=== PATIENT | male | born 1955 | race Caucasian/White ===

== ENCOUNTER → 2018-01-21 17:07 | Outpatient (CLI) | payer SELFPAY ==
--- NOTE | 2018-01-21 17:24 | XR_ITS ---
XR chest 2V HISTORY: ITS.REASON: POSSIBLE ASPIRATION OF DENTAL IMPLANT SCREW ORDERING PHYSICIAN: Referral Provider, PATIENT AGE: 62 years COMPARISON: None FINDINGS: The cardiomediastinal silhouette and pulmonary vascularity are within normal limits. There are minimal atelectatic or fibrotic changes in the left lung base. No radio opaque foreign bodies evident within the chest. There is a small rounded metallic density in the mid upper abdomen centrally measuring 5 mm with a central lucency and may be related to a swallowed dental implant. This is seen on the most inferior edge of the film on the frontal view. Probably within the stomach. IMPRESSION: Metallic foreign body in the mid upper abdomen centrally likely in the stomach and may represent a swallowed dental implant.
== END ==
DX: T18.8XXA Foreign body in other parts of alimentary tract, initial encounter (principal)
CPT/HCPCS: 71046

== ENCOUNTER 2025-04-28 19:52 | Emergency (ER) | payer MEDICARE, OTHER, SELFPAY ==
--- OUTSIDE RECORDS SUMMARY | 2025-03-23 11:30 | XMS_ITS | Encounter Summary ---
Author Organization [facility] Address [address] [place] [address] Care Team Providers Care Contingents Supervisor Name Role Phone Madi Gu Primary Care Provider [phone] Reason for Visit * Reason Comments Medicare Wellness-subsequent Saturday had abdominal pain started on rt side and radiated to lower back. But since then he has been better. Not had pain since.Pt is fasting today if needed for labs. Encounter Details Date Type Department Care Team (Late st Contact Info) Description 03/23/2025 11:30 AM EDT Office Visit [facility] [address] [place] [address] Madi Gu PA [address] [place] [address] Medicare annual wellness visit, subsequent (Primary Dx); Mixed hyperlipidemia; Primary hypertension; Vitamin D insufficiency; Screening for malignant neoplasm of prostate; Type 2 diabetes mellitus without complication, without long-term current use of insulin; Chronic pain of right knee; Right flank pain; RLQ abdominal pain Social History Tobacco Use Types Packs/Day Years Used Date Smoking Tobacco: Never Passive Smoke Exposure: Never Smokeless Tobacco: Never Tobacco Cessation:Counseling Given: Not Answered Alcohol Use Standard Drinks/Week Comments Not Currently 0 (1 standard drink = 0.6 oz pur e alcohol) Occasional glass of wine PHQ-2 Answer Date Recorded Retired PHQ-9: Brief Depression Severity Measure Score 0 03/28/2022 PHQ-2 Answer Date Recorded Patient Health Questionnaire-2 Score 0 03/23/2025 Sex and Gender Information Value Date Recorded Sex Assigned at Male 11/25/2024 10:38 AM EDT Legal Sex Male 1:09 PM EDT Gender Identity Not on file Sexual Orientation Straight 11/25/2024 10 :38 AM EDT Occupation Industry Job Start Date Job End Date Contractor Not on file Not on file Not on file documented as of this encounter Last Filed Vital Signs Vital Sign Reading Time Taken Comments Blood Pressure 118/68 03/23/2025 11:20 AM EDT Pulse 56 03/23/2025 11:20 AM EDT Temperature 36.4 C (97.5 F) 03/23/2025 11:20 AM EDT Respiratory Rate - - Oxygen Saturation 94% 03/23/2025 11:20 AM EDT Inhaled Oxygen Concentration - - Weight 112 kg (248 lb) 03/23/2025 11:20 AM EDT Height 185.4 cm (6' 1 ) 03/23/2025 11:20 AM EDT Body Mass Index 32.72 03/23/2025 11:20 AM EDT documented in this encounter Functional Status documented as of this encounter Progress Notes * Madi Gu PA - 03/23/2025 11:30 AM EDT Subjective The ABCs of the Annual Wellness Visit Medicare Wellness Visit Rayray Zepeda Jr is a 69 y.o. patient who presents for a Medicare Wellness Visit. The following portions of the patient's history were reviewed and updated as appropriate: allergies, current medications, past family history, past medical history, past social history, past surgical history, and problem list. Compared to one year ago, the patient's physical health is the same. Compared to one year ago, the patient's mental health is better. Recent Hospitalizations: He was not admitted to the hospital during the last year. Current Medical Providers: Patient Care Team: Madi uG PA as PCP - General (Physician Credit Card Specialist) Outpatient Medications Prior to Visit Medication Sig Dispense Refill aspirin 81 MG chewable tablet Chew 1 tablet Daily. cetirizine (ZyrTEC) 10 MG chewable tablet Chew Daily. ezetimibe (ZETIA) 10 MG tablet TAKE 1 TABLET BY MOUTH DAILY 90 tablet 1 ketorolac (ACULAR) 0.5 % ophthalmic solution loratadine (Claritin) 10 MG tablet Take 1 tablet by mouth Daily. olmesartan (Benicar) 40 MG tablet Take 1 tablet by mouth Daily. 90 tablet 1 Tirzepatide 10 MG/0.5ML solution auto-injector Inject 10 mg under the skin into the appropriate area as directed 1 (One) Time Per Week. 2 mL 3 Cholecalciferol (Vitamin D3) 50 MCG (2000 UT) capsule meloxicam (MOBIC) 15 MG tablet Take 1 tablet by mouth Daily As Needed for Moderate Pain. meloxicam (MOBIC) 7.5 MG tablet Take 1 tablet by mouth Daily. moxifloxacin (VIGAMOX) 0.5 % ophthalmic solution prednisoLONE acetate (PRED FORTE) 1 % ophthalmic suspension No facility-administered medications prior to visit. No opioid medication identified on active medication list. I have reviewed chart for other potential high risk medication/s and harmful drug interactions in the elderly. Aspirin is on active medication list. Aspirin use is indicated based on review of current medical condition/s. Pros and cons of this therapy have been discussed today. Benefits of this medication outweigh potential harm. Patient has been encouraged to continue taking this medication. . Patient Active Problem List Diagnosis Kidney stones Squamous cell carcinoma of skin Seasonal allergies Hypogonadism male Hypertension Mixed hyperlipidemia Erectile dysfunction Class 1 obesity due to excess calories with serious comorbidity and body mass index (BMI) of 34.0 to 34.9 in adult Type 2 diabetes mellitus without complication, without long-term current use of insulin History of colon polyps Advance Care Planning Advance Directive is on file. ACP discussion was held with the patient duringthis visit. Patient has an advance directive in EMR which is still valid. Objective Vitals: 03/23/25 1120 BP: 118/68 Pulse: 56 Temp: 97.5 ??F (36.4 ??C) SpO2: 94% Weight: 112 kg (248 lb) Height: 185.4 cm (73 ) PainSc: 0-No pain Estimated body mass index is 32.72 kg/m?? as calculated from the following: Height as of this encounter: 185.4 cm (73 ). Weight as of this encounter: 112 kg (248 lb). BMI is >= 30 and <35. (Class 1 Obesity). The following options were offered after discussion;: exercise counseling/recommendations and nutrition counseling/recommendations Does the patient have evidence of cognitive impairment? No Health Risk Assessment Smoking Status: Social History Tobacco Use Smoking Status Never Passive exposure: Never Smokeless Tobacco Never Alcohol Consumption: Social History Substance and Sexual Activity Alcohol Use Not Currently Comment: Occasional glass of wine Fall Risk Screen STEADI Fall Risk Assessment was completed, and patient is at LOW risk for falls.Assessment completed on:03/23/2025 Depression Screening Little interest or pleasure in doing things? Not at all Feeling down, depressed, or hopeless? Not at all PHQ-2 Total Score 0 Health Habits and Functional and Cognitive Screenin03/15/2025 12:10 PM Functional & Cognitive Status Do you have difficulty preparing food and eating? No Do you have difficulty bathing yourself, getting dressed or grooming yourself? No Do you have difficulty using the toilet? No Do you have difficulty moving around from place to place? No Do you have trouble with steps or getting out of a bed or a chair? No Current Diet Limited Junk Food Dental Exam Up to date Eye Exam Up to date Exercise (times per week) 3 times per week Current Exercises Include Walking;Weightlifting;Yard Work Do you need help using the phone? No Are you deaf or do you have serious difficulty hearing? No Do you need help to go to places out of walking distance? No Do you need help shopping? No Do you need help preparing meals? No Do you need help with housework? No Do you need help with laundry? No Do you need help taking your medications? No Do you need help managing money? No Do you ever drive or ride in a car without wearing a seat belt? No Have you felt unusual fatigue (could be tiredness), stress, anger or loneliness in the last month? No Who do you live with? Spouse If you need help, do you have trouble finding someone available to you? No Have you been bothered in the last four weeks by sexual problems? No Do you have difficulty concentrating, remembering or making decisions? No Age-appropriate Screening Schedule: Refer to the list below for future screening recommendations based on patient's age, sex and/or medical conditions. Orders for these recommended tests are listed in the plan section. The patient has been provided with a written plan. Health Maintenance List Health Maintenance Topic Date Due DIABETIC FOOT EXAM Never done URINE MICROALBUMIN-CREATININE RATIO (uACR) 12/30/2019 DIABETIC EYE EXAM 10/13/2024 ANNUAL WELLNESS VISIT 01/08/2025 LIPID PANEL 01/08/2025 COVID-19 Vaccine ( season) 2025 HEMOGLOBIN A1C 06/04/2025 INFLUENZA VACCINE 04/14/2025 COLORECTAL CANCER SCREENING 01/20/2030 TDAP/TD VACCINES (3 - Td or Tdap) 12/11/2034 Pneumococcal Vaccine 50+ Completed HEPATITIS C SCREENING Addressed ZOSTER VACCINE Addressed [facility] Preventative Services Quick Reference Risk Factors Identified During Encounter None Identified The above risks/problems have been discussed with the patient. Pertinent information has been shared with the patient in the After Visit Summary. An After Visit Summary and PPPS were made available to the patient. Follow Up: Next Medicare Wellness visit to be scheduled in 1 year. Additional E&M Note during same encounter follows: Patient has additional, significant, and separately identifiable condition(s)/problem(s) that require work above and beyond the Medicare Wellness Visit Chief Complaint Medicare Wellness-subsequent (Saturday had abdominal pain started on rt side and radiated to lower back. But since then he has been better. Not had pain since./Pt is fasting today if needed for labs.) Christy AVELAR Akin is also being seen today for additional medical problem/s. The patient is a 69-year-old male who presents for a subsequent Medicare wellness visit, following up on diabetes, hyperlipidemia, and hypertension. He has received the first round of hepatitis vaccines and is awaiting notification for the second round. He had hepatitis in the fourth grade and is curious about his current immunity status. He has never been able to donate blood and wonders if this is related to his hepatitis history. His blood pressure readings at home have been around 116 to 120 systolic since his last visit in 11/2024. However, a month ago, he recorded readings of 140 to 150 systolic. He uses an upper arm cuff for these measurements. He reports no side effects such as lightheadedness or dizziness. He has observed that his blood pressure can vary significantly within a short period, for instance, dropping from 145 to 130 after a 10-minute interval. He underwent a colonoscopy where a polyp and a slight ulcer were found. He read that meloxicam could have caused the ulcer, so he stopped taking it for a while. He did take it while on vacation because he was walking so much. He had gone to the [place] earlier this year, where his brother took him to a sports medicine clinic, and they gave him a shot in his knee and meloxicam. He quit taking it all the time because he was not sure about it. He has not noticed any pain from the ulcer. He is considering trying meloxicam again but at a lower dose and needs a new prescription for it. He has been doing well on Mounjaro 10 mg, although he had to stop it for his cataract surgery, kneetreatment, and colonoscopy. He also forgot to take it during a 2-week trip. He has since resumed the medication, starting with a lower dose of 5 or 7.5 mg, and has not experienced any issues. He is working on losing weight again and is trying to be more active. He experienced severe abdominal pain upon returning home from a trip, which he initially thought might be gallbladder-related. The pain was intense, rating it as a 7 or 8 out of 10. He took Tylenol, but it made him sick, so he did not take anything else. He used a heating pad for relief. The next morning, he woke up without any pain. He did not notice any pus or blood in his urine. The pain was similar to what he has felt before with kidney stones, but those episodes lasted longer. He is unsureif the pain was due to gas or a kidney stone. He did not have a fever, and his temperature was around 96.7 degrees Fahrenheit. He felt relief after having a bowel movement. He developed a dry cough while traveling, which progressively worsened. He tried [id number]-iqajqbi medication from a local pharmacy, but it did not help. He has a persistent cough, which he thinks might be due to allergies or postnasal drip. He read that some blood pressure medications can cause a persistent cough. The weather during his trip was mostly eveline with temperatures around 85 to 90 degre es Fahrenheit. He does not experience heartburn or indigestion with the cough. He sometimes feels like food gets stuck when he eats and wonders if he might have a hiatal hernia. The cough is worse when he lies down at night and puts his head on the pillow, causing a rattling sensation in his throatthat makes him cough. He takes Mucinex when he has congestion and is coughing. PAST SURGICAL HISTORY: Colon polyp removal (date not specified) Cataract surgery (date not specified) Knee treatment (date not specified) Objective Vital Signs: BP 118/68 Pulse 56 Temp 97.5 ??F (36.4 ??C) Ht 185.4 cm (73 ) Wt 112 kg (248 lb) SpO2 94% BMI 32.72 kg/m?? Physical Exam Vitals reviewed. Constitutional: Appearance: Normal appearance. Cardiovascular: Rate and Rhythm: Normal rate and regular rhythm. Pulmonary: Effort: Pulmonary effort is normal. Breath sounds: Normal breath sounds. Abdominal: Tenderness: There is no abdominal tenderness. There is no right CVA tenderness, left CVA tendernessor guarding. Skin: General: Skin is warm and dry. Neurological: Mental Status: He is alert and oriented to person, place, and time. Psychiatric: Mood and Affect: Mood normal. Behavior: Behavior normal. Respiratory: Clear to auscultation, no wheezing, rales or rhonchi Results Labs - Hep B surface antibody: Not reactive - Blood sugar: Averaging about 90 in the morning, sometimes between 90 and 100, and was 104 this morning - A1c: 6.2 - Microalbumin test: Normal - Urinalysis: Trace blood Assessment and Plan Additional age appropriate preventative wellness advice topics were discussed during today's preventative wellness exam(some topics already addressed during AWV portion of the note above): Physical Activity: Advised cardiovascular activity 150 minutes per week as tolerated. (example brisk walk for 30 minutes, 5 days a week). Nutrition: Discussed nutrition plan with patient. Information shared in after visit summary. Goal is for a well balanced diet to enhance overall health. Healthy Weight: Discussed current and goal BMI with patient. Steps to attain this goal discussed. Information shared in after visit summary. 1. Hypertension: - Blood pressure readings have been fluctuating, potentially due to anxiety or increased use of anti-inflammatory medications. - Kidney function tests are within normal limits. - He is advised to bring his blood pressure cuff for a ifpx-qm-ojbt comparison during a walk-in nurse visit to assess its accuracy. - Refills for olmesartan will be provided. 2. Diabetes Mellitus: - Blood glucose levels are well-controlled, with an A1c of 6.2%. - He is advised to continue his current regimen of Mounjaro 10 mg weekly. - Refills for Mounjaro will be provided. 3. Hyperlipidemia: - Refills for ezetimibe will be provided. 4. Abdominal Pain: - The abdominal pain could be attributed to gas buildup or a small kidney stone that may have passed. - A urine sample will be collected today for further analysis. - If the pain recurs, he is advised to contact the office for a CAT scan. 5. Knee Pain: - He experiences knee pain, particularly when ascending or descending stairs, which is likely due to arthritis rather than a structural issue. - A prescription for meloxicam 7.5 mg will be provided for pain management. 6. Health Maintenance: - He has received the first round of hepatitis shots and will be notified when the second round is due. - He is up to date with his tetanus shot until 2034. - Blood work will be conducted today to assess overall health status. 7. Persistent Cough: - The persistent cough could be due to postnasal drip, which may be exacerbated by seasonal allergies or sinus structure. - Zpvp-hgu-lueiqeq Quercetin with bromelain is recommended for respiratory inflammation. Follow-up: A follow-up visit is scheduled in 6 months. Diagnoses and all orders for this visit: 1. Medicare annual wellness visit, subsequent (Primary) - CBC w AUTO Differential - Comprehensive metabolic panel - Lipid Panel - TSH - Vitamin D 25 hydroxy - PSA SCREENING - POC Glycosylated Hemoglobin (Hb A1C) - POC Albumin/Creatinine Ratio Urine - POCT urinalysis dipstick, automated 2. Mixed hyperlipidemia - CBC w AUTO Differential - Comprehensive metabolic panel - Lipid Panel - ezetimibe (ZETIA) 10 MG tablet; Take 1 tablet by mouth Daily. Dispense: 90 tablet; Refill: 3 3. Primary hypertension - CBC w AUTO Differential - Comprehensive metabolic panel - olmesartan (Benicar) 40 MG tablet; Take 1 tablet by mouth Daily. Dispense: 90 tablet; Refill: 3 4. Vitamin D insufficiency - Vitamin D 25 hydroxy 5. Screening for malignant neoplasm of prostate - PSA SCREENING 6. Type 2 diabetes mellitus without complication, without long-term current use of insulin - CBC w AUTO Differential - Comprehensive metabolic panel - TSH - POC Glycosylated Hemoglobin (Hb A1C) - POC Albumin/Creatinine Ratio Urine - Tirzepatide 10 MG/0.5ML solution auto-injector; Inject 10 mg under the skin into the appropriate area as directed 1 (One) Time Per Week. Dispense: 6 mL; Refill: 3 7. Chronic pain of right knee - meloxicam (MOBIC) 7.5 MG tablet; Take 1 tablet by mouth Daily. Dispense: 90 tablet; Refill: 1 8. Right flank pain - CBC w AUTO Differential - Comprehensive metabolic panel - POCT urinalysis dipstick, automated 9. RLQ abdominal pain - CBC w AUTO Differential - Comprehensive metabolic panel I spent 20 minutes caring for Rayray on this date of service. This time includes time spent by me in the following activities:preparing for the visit, reviewing tests, obtaining and/or reviewing a separately obtained history, performing a medically appropriate examination and/or evaluation , counseling and educating the patient/family/caregiver, ordering medications, tests, or procedures, and documenting information in the medical record Follow Up No follow-ups on file. Patient was given instructions and counseling regarding his condition or for health maintenance advice. Please see specific information pulled into the AVS if appropriate. Patient or patient risk control field representative verbalized consent for the use of Ambient Listening during the visit with JEB Valdez for chart documentation. 03/23/2025 13:33 EDT documented in this encounter Plan of Treatment Upcoming Encounters Date Type Department Care Team (Late st Contact Info) Description 03/28/2026 9:00 AM EDT Office Visit [facility] [address] [place] [address] Madi Gu PA [address] [place] [address] documented as of this encounter Procedures Procedure Name Priority Date/Time Associated Diagnosis Comments PSA SCREEN Routine 03/23/2025 12:31 PM EDT Medicare annual wellness visit, subsequent Screening for malignant neoplasm of prostate VITAMIN D,25-HYDROXY Routine 03/23/2025 12:31 PM EDT Medicare annual wellness visit, subsequent Vitamin D insufficiency CBC AND DIFFERENTIAL Routine 03/23/2025 12:31 PM EDT Medicare annual wellness visit, subsequent Mixed hyperlipidemia Primary hypertension Type 2 diabetes mellitus without complication, without long-term current use of insulin Right flank pain RLQ abdominal pain TSH Routine 03/23/2025 12:31 PM EDT Medicare annual wellness visit, subsequent Type 2 diabetes mellitus without complication, without long-term current use of insulin LIPID PANEL Routine 03/23/2025 12:31 PM EDT Medicare annual wellness visit, subsequent Mixed hyperlipidemia COMPREHENSIVE METABOLIC PANEL Routine 03/23/2025 12:31 PM EDT Medicare annual wellness visit, subsequent Mixed hyperlipidemia Primary hypertension Type 2 diabetes mellitus without complication, without long-term current use of insulin Right flank pain RLQ abdominal pain POCT GLYCOSYLATED HEMOGLOBIN (HGB A1C) Routine 03/23/2025 12:30 PM EDT Medicare annual wellness visit, subsequent Type 2 diabetes mellitus without complication, without long-term current use of insulin POC ALBUMIN/CREATININE RATIO Routine 03/23/2025 12:29 PM EDT Medicare annual wellness visit, subsequent Type 2 diabetes mellitus without complication, without long-term current use of insulin POCT URINALYSIS DIPSTICK, AUTOMATED Routine 03/23/2025 12:27 PM EDT Medicare annual wellness visit, subsequent Right flank pain documented in this encounter Results * PSA SCREENING (03/23/2025 12:31 PM EDT) [facility] PSA 0.5 0.0 - 4.0 ng/mL [facility] Comment: Mariam ECLIA methodology. According to the [place] [employer], Serum PSA should decrease and remain at undetectable levels after radical prostatectomy. The AUA defines biochemical recurrence as an initial PSA value 0.2 ng/mL or greater followed by a subsequent confirmatory PSA value 0.2 ng/mL or greater. Values obtained with different assay methods or kits cannot be used interchangeably. Results cannot be interpreted as absolute evidence of the presence or absence of malignant disease. Blood 03/23/2025 12:3 1 PM EDT 03/23/2025 [facility] ([facility]BULATORY) - 03/24/2025 8:12 AM EDT Performed at: 01 - [facility] [address] [place], [place] [id number] Farm Loan Inspector: Curry Elise PhD, Phone: [phone] Patient Fasting: Y Madi RUSS LAB BLOOD ORDERABLES Final Res ult Performing Organization Address City/[facility]/ZIP Co de Phone Number [facility] [address] [place] [address], [facility] [address] [place] [address], * Vitamin D 25 hydroxy (03/23/2025 12:31 PM EDT) Pathologist [facility] 25 Hydroxy, Vitamin D 45.8 30.0 - 100.0 ng/mL [facility] Comment: Vitamin D deficiency has been defined by the [place] of Medicine and an Endocrine Society practice guideline as a level of serum 25-OH vitamin D less than 20 ng/mL (1,2). The Endocrine Society went on to further define vitamin D insufficiency as a level between 21 and 29 ng/mL (2). 1. IOM ([place] of Medicine). 2010. Dietary reference intakes for calcium and D. [place]: The National Academies Press. 2. Lorene MF, Heather GARCIA, Jaqui MASON, et al. Evaluation, treatment, and prevention of vitamin D deficiency: an Endocrine Society clinical practice guideline. JCEM. 2010; 96(7):1911-30. Blood 03/23/2025 12:3 1 PM EDT 03/23/2025 Narrative [facility] (AMBULATORY) - 03/24/2025 8:12 AM EDT Performed at: 01 - [facility] [address] [place], [place] [id number] Farm Loan Inspector: Curry Elise PhD, Phone: [phone] Patient Fasting: Y Madi RUSS LAB BLOOD ORDERABLES Final Res ult Performing Organization Address City/[facility]/ZIP Co de Phone Number [facility] [address] [place] [address], [facility] [address] [place] [address], [place] [phone] * (ABNORMAL) TSH (03/23/2025 12:31 PM EDT) [facility] TSH 4.670(H) 0.450 - 4.500 uIU/mL [facility] Blood 03/23/2025 12:3 1 PM EDT 03/23/2025 Narrative [facility] ([facility]) - 03/24/2025 8:12 AM EDT Performed at: [address] [place] [id number] Farm Loan Inspector: Curry Elise PhD, Phone: [phone] Patient Fasting: Y Madi RUSS LAB BLOOD ORDERABLES Final Res ult Performing Organization Address City/[facility]/ZIP Co de Phone Number [facility] (AMBULATORY) [address] [place] [address], [place] [phone] [facility] [address] [place] [address], [place] [phone] * (ABNORMAL) Lipid Panel (03/23/2025 12:31 PM EDT) [facility] Total Cholesterol 174 100 - 199 mg/dL [facility] Triglycerides 98 0 - 149 mg/dL [facility] HDL Cholesterol 44 >39 mg/dL [facility] VLDL Cholesterol Altaf 18 5 - 40 mg/dL [facility] LDL Chol Calc ([facility]) 112(H) 0 - 99 mg/dL [facility] Blood 03/23/2025 12:3 1 PM EDT 03/23/2025 Narrative [facility] ([facility]) - 03/24/2025 8:12 AM EDT Performed at: [address] [place] [id number] Farm Loan Inspector: Curry Elise PhD, Phone: [phone] Patient Fasting: Y Madi RUSS LAB BLOOD ORDERABLES Final Res ult [facility] (AMBULATORY) [address] [place] [address], [place] [phone] [facility] [address] [place] [address], * (ABNORMAL) Comprehensive metabolic panel (03/23/2025 12:31 PM EDT) Glucose 105(H) 70 - 99 mg/dL [facility] BUN 17 8 - 27 mg/dL [facility] Creatinine 1.12 0.76 - 1.27 mg/dL [facility] EGFR Result 71 >59 mL/min/1.7 3 [facility] BUN/Creatinine Ratio 15 10 - 24 [facility] Sodium 141 134 - 144 mmol/L [facility] Potassium 4.5 3.5 - 5.2 mmol/L [facility] Chloride 103 96 - 106 mmol/L [facility] Total CO2 22 20 - 29 mmol/L [facility] Calcium 9.8 8.6 - 10.2 mg/dL [facility] Total Protein 7.1 6.0 - 8.5 g/dL [facility] Albumin 4.4 3.9 - 4.9 g/dL [facility] Globulin 2.7 1.5 - 4.5 g/dL [facility] Total Bilirubin 0.8 0.0 - 1.2 mg/dL [facility] Alkaline Phosphatase 88 44 - 121 IU/L [facility] Comment: Effective March 29, 2025 Alkaline Phosphatase reference interval will be changing to: Age Male Female 0 - 5 days 47 - 127 47 - 127 6 - 10 days 29 - 242 29 - 242 11 - 20 days 109 - 357 109 - 357 21 - 30 days 94 - 494 94 - 494 1 - 2 months 149 - 539 149 - 539 3 - 6 months 131 - 452 131 - 452 7 - 11 months 117 - 401 117 - 401 12 months - 6 years 158 - 369 158 - 369 7 - 12 years 150 - 409 150 - 409 13 years 156 - 435 78 - 227 14 years 114 - 375 64 - 161 15 years 88 - 279 56 - 134 16 years 74 - 207 51 - 121 17 years 63 - 161 47 - 113 18 - 20 years 51 - 125 42 - 106 21 - 50 years 47 - 123 41 - 116 51 - 80 years 49 - 135 51 - 125 >80 years 48 - 129 48 - 129 AST (SGOT) 20 0 - 40 IU/L [facility] ALT (SGPT) 15 0 - 44 IU/L [facility] Blood 03/23/2025 12:3 1 PM EDT 03/23/2025 Narrative [facility] (AMBULATORY) - 03/24/2025 8:12 AM EDT Performed at: 01 - [address] [id number] [employer] Inspector: Curry Elise PhD, Phone: [phone] Patient Fasting: Y Madi RUSS LAB BLOOD ORDERABLES Final Res ult [facility] (AMBULATORY) [address] [place] [id number], [facility] [address] [place] [address], * CBC w AUTO Differential (03/23/2025 12:31 PM EDT) WBC 7.3 3.4 - 10.8 x10E3/uL [facility] RBC 5.14 4.14 - 5.80 x10E6/uL [facility] Hemoglobin 15.5 13.0 - 17.7 g/dL [facility] Hematocrit 46.2 37.5 - 51.0 % [facility] MCV 90 79 - 97 fL [facility] MCH 30.2 26.6 - 33.0 pg [facility] MCHC 33.5 31.5 - 35.7 g/dL [facility] RDW 12.7 11.6 - 15.4 % [facility] Platelets 220 150 - 450 x10E3/uL [facility] Neutrophil Rel % 55 Not Estab. % [facility] Lymphocyte Rel % 34 Not Estab. % [facility] Monocyte Rel % 7 Not Estab. % [facility] Eosinophil Rel % 2 Not Estab. % [facility] Basophil Rel % 1 Not Estab. % [facility] Neutrophils Absolute 3.9 1.4 - 7.0 x10E3/uL [facility] Lymphocytes Absolute 2.5 0.7 - 3.1 x10E3/uL [facility] Monocytes Absolute 0.5 0.1 - 0.9 x10E3/uL [facility] Eosinophils Absolute 0.2 0.0 - 0.4 x10E3/uL [facility] Basophils Absolute 0.1 0.0 - 0.2 x10E3/uL [facility] Immature Granulocyte Rel % 1 Not Estab. % [facility] Immature Grans Absolute 0.1 0.0 - 0.1 x10E3/uL [facility] Blood 03/23/2025 12:3 1 PM EDT 03/23/2025 Narrative [facility] (AMBULATORY) - 03/24/2025 8:12 AM EDT Performed at: 01 - [address] [id number] [employer] Inspector: Curry Elise PhD, Phone: [phone] Patient Fasting: Y us Madi RUSS LAB BLOOD ORDERABLES Final Res ult Performing Organization Address City/[facility]/ZIP Co de Phone Number [facility] (AMBULATORY) [address] [place] [address], [place] [phone] [facility] [address] [place] [address], [place] [phone] * (ABNORMAL) POC Glycosylated Hemoglobin (Hb A1C) (03/23/2025 12:30 PM EDT) Hemoglobin A1C 6.2(A) 4.5 - 5.7 % [facility] Lot Number [id number] [facility] Expiration Date 10/15/26 [facility] Blood 03/23/2025 12:3 0 PM EDT us Madi RUSS POINT OF CARE TEST ORDERABLES Final Result [facility]
[address] [place] [address], * POC Albumin/Creatinine Ratio Urine (03/23/2025 12:29 PM EDT) POC ALBUMIN, URINE 30 mg/L POC CREATININE, URINE 200 mg/dL POC Urine Albumin Creatinine Ratio <30 mg/g <30 Lot Number [id number] Expiration Date 11/11/25 Urine 03/23/2025 12:2 9 PM EDT us Madi RUSS POINT OF CARE TEST ORDERABLES Final Result * (ABNORMAL) POCT urinalysis dipstick, automated (03/23/2025 12:27 PM EDT) Color Yellow Yellow, Straw, Dark Yellow, Meron [facility] Clarity, UA Clear Clear [facility] Specific [place] 1.025 1.005 - 1.030 [facility] pH, Urine 6.0 5.0 - 8.0 [facility] Leukocytes Negative Negative [facility] Nitrite, UA Negative Negative [facility] Protein, POC Negative Negative mg/dL [facility] Glucose, UA Negative Negative mg/dL [facility] Ketones, UA Negative Negative [facility] Urobilinogen, UA Normal Normal, 0.2 E.U./dL [facility] Bilirubin Negative Negative [facility] Blood, UA 1+(A) Negative [facility] Lot Number [id number] [facility] Expiration Date 09/07/25 [facility] Urine 03/23/2025 12:2 7 PM EDT us Madi RUSS POINT OF CARE TEST ORDERABLES Final Result [facility]
[address] [place] [id number], documented in this encounter Visit Diagnoses Diagnosis Medicare annual wellness visit, subsequent- Primary Mixed hyperlipidemia Primary hypertension Unspecified essential hypertension Vitamin D insufficiency Screening for malignant neoplasm of prostate Type 2 diabetes mellitus without complication, without long-term current use of insulin Chronic pain of right knee Right flank pain Abdominal pain, unspecified site RLQ abdominal pain Abdominal pain, right lower quadrant documented in this encounter Care Teams Contingents Supervisor Relationship Specialty Start Date End Date Madi Gu PA [address] [place] [address] PCP - General Physician Credit Card Specialist 05/23/21 documented as of this encounter
[2025-04-28 20:28] VITALS: BP 138/90; PULSE 102; RESP 18; TEMP 38.1; O2SAT 95; BMI 32.1
--- NOTE | 2025-04-28 20:36 | ED_ITS ---
<Statement entered by Rodrick Thompson DO - 04/29/25 02:52> I was consulted by the SHERIE, and we discussed the complexity of problems being addressed. I approved the treatment and management plan for this patient's care in the emergency department, thus performing a substantive portion of the medical decision making. Rodrick Thompson DO This is Dr. Thompson. I received handoff of care on this patient at shift change at 10 PM. I did independently evaluate the patient and obtain collateral history. The patient tells me that he has had upper respiratory symptoms including cough, congestion, and rhinorrhea for the last several days. He has been taking [id number] Tylenol Sinus and Mucinex with minimal improvement in symptoms. He states that today he developed a fever of 100.6 ?F so he decided to come here for further evaluation. On physical examination the patient did have some point tenderness in the left lower quadrant without any evidence of rebound or guarding. Therefore we decided to obtain a CT scan of the abdomen and pelvis. In addition to this we obtained hematologic labs including a CBC, CMP, lactate, magnesium, as well as a urinalysis, blood cultures, and COVID and flu swabs. On arrival to the emergency department the patient was febrile with a temperature of 100.6 Degrees Fahrenheit. He was mildly tachycardic as well. Labs personally interpreted by me demonstrate no leukocytosis or Transfusable anemia. He has no significant electrolyte derangements or evidence of acute kidney injury. He has no transaminitis. Urinalysis shows no evidence of urinary tract infection. COVID and influenza swabs are negative. Chest x-ray was personally turbid by me demonstrates no lobar consolidation or pleural effusion. Official radiology read is in agreement states there is no acute abnormality. We did obtain a CT scan of the abdomen and pelvis with IV contrast. This was personally turbid by me and demonstrates no evidence of pneumoperitoneum. Official radiology read is in agreement states that there is no acute abnormality. We treated the patient with Tylenol. On repeat assessment his heart rate and temperature have normalized. He has no other clinical findings that would be concerning for sepsis as he does not have persistent tachycardia, persistent fevers, leukocytosis, and no findings of infection on abdominal or chest films. Therefore I do not feel that he necessitates admission to the hospital. I do feel that his presentation is most consistent with a likely viral syndrome. I have advised the patient to continue taking Tylenol and Motrin at home. I have also given him strict return precautions in the event that he has any new or worsening symptoms including fevers that are refractory to anti-inflammatories, focal abdominal pain, cough with production of phlegm, shortness of breath, chest pain, or any other new or worsening symptoms. At this time all questions were answered and all parties are agreeable with the decision to discharge home Discharge Plan Disposition Patient Disposition: Home, Self-Care Condition: Good Referrals Follow up/Referrals: Provider,Referral, MD [Primary Care Provider, Medical] - See instructions Activity Restrictions/Add. Instructions Additional Instructions/Restrictions: Your presentation is consistent with a viral syndrome. I want you to continue using over the counter medications at home. If you have production of discolored phlegm with worsening cough, shortness of breath, chest pain, or fevers that do not respond to tylenol and motrin please return to the ER for further evaluation. Clinical Impressions Clinical Impression: Acute cough Pyrexia Qualifiers: Fever type: unspecified Qualified Code(s): R50.9 - Fever, unspecified Abdominal pain Qualifiers: Abdominal location: left lower quadrant Qualified Code(s): R10.32 - Left lower quadrant pain Print Language Print Language: Sammarinese Discharge ED Provider: Rodrick Thompson Adult HPI <Deyanira Schultz - Fernando Filed: 04/28/25 22:28> General Chief complaint: Fever Stated complaint: body aches, fever,vomiting Time Seen by Provider: 04/28/25 20:36 Mode of Arrival: Ambulatory Source of Information: Patient Description of Symptoms (Recalled from ER Triage Doc. by RN): Pt presents for evaluation of generalized bodyaches, chills, fever, vomiting. History of Present Illness HPI narrative: 69-year-old male presents emergency department with complaints of cough, congestion, nausea, vomiting, fever since earlier today. He reports that he took Tylenol sinus as well as Mucinex earlier today at approximately 3 PM. Related Data Allergies Allergy/AdvReac Type Severity Reaction Status Date / Time No Known Allergies Allergy Verified 05/11/18 15:52 PFS <Deyanira Schultz - Last Filed: 04/28/25 22:28> [facility] Disclaimer: The information contained in this section may have been updated after the patient was seen, as this information can be updated by other users. Social History (Updated 04/28/25 @ 22:28 by Deyanira Schultz) Smoking Status: Never smoker alcohol intake: never current occupational status: retired Travel in the last 8 weeks?: None Have you lived/traveled outside US in past 30 days?: No Contact w/someone who lives/traveled outside US past 30 days?: No Exposure to someone with infectious disease in past 14 days?: No Do you have a fever (greater than 100.4 F or 38 C)?: No Have you tested positive for COVID-19?: No Exposed to someone with COVID-19 in past 14 days?: No Do you have a sore throat?: No Do you have a cough?: No Do you have any weakness?: No Do you have any diarrhea?: No Are you experiencing any unusual bleeding?: No Do you have any muscle aches/pain?: No Do you have any abdominal pain?: No Are you experiencing loss of taste or smell?: No <Deyanira Schultz - Last Filed: 04/28/25 22:28> ROS Obtained: Yes other Constitutional Constitutional: Reports body ache, Reports chills and Reports fever(s) Respiratory Respiratory: Reports cough Gastrointestinal Gastrointestingal: Reports nausea and vomiting Physical Exam <Deyanira Schultz - Last Filed: 04/28/25 22:28> Narrative Physical exam: General: Awake, aware, in no acute distress HEENT: Normocephalic, no evidence of trauma CV: RRR, no murmurs, rubs, or gallops Pulm: CTA bilaterally with no rhonchi, rales, wheezes ABD: Mild tenderness noted on palpation of left lower quadrant. Patient with normal active bowel sounds. Patient currently tolerating p.o. without difficulty Psych, appropriate mood and affect General General appearance: alert Respiratory Respiratory exam: Present normal lung sounds bilaterally Cardiovascular Cardiovascular exam: Present regular rate Neurological Exam Neurological exam: Present alert Medical Decision Making <Deyanira Schultz - Last Filed: 04/28/25 22:28> Medical Records Screening: Per USPSTF and CDC recommendations, given the prevalence of disease in our region, it is our hospital?s policy to screen for HIV and viral Hepatitis for all patients aged 18 and over and those with ongoing risk factors. Mukund Inquiry Pt receiving controlled substance: No Vital Signs: 04/28/25 20:28 04/28/25 21:19 04/28/25 22:23 Temperature 100.6 F H Temperature Source Temporal Artery Scan Pulse Rate 89 81 Pulse Rate [Right] 102 H Respiratory Rate 18 Blood Pressure 147/74 H 135/68 Blood Pressure [Right Arm] 138/90 Blood Pressure Mean [Right Arm] 106 Blood Pressure Source [Right Arm] Automatic Cuff Blood Pressure Position [Right Arm] Sitting 02 Sat by Pulse Oximetry 95 96 97 Oxygen Delivery Method Room Air Room Air Room Air 04/28/25 23:14 04/28/25 23:44 Temperature 98.6 F Temperature Source Pulse Rate 78 80 Pulse Rate [Right] Respiratory Rate 16 16 Blood Pressure 129/72 136/71 Blood Pressure [Right Arm] Blood Pressure Mean [Right Arm] Blood Pressure Source [Right Arm] Blood Pressure Position [Right Arm] 02 Sat by Pulse Oximetry 98 Oxygen Delivery Method Room Air Room Air Lab Data Lab Results 04/28/25 20:31: SARS-CoV-2 (PCR) Not detected, Influenza A Untype (PCR) Not detected, Influenza Type B (PCR) Not detected 04/28/25 20:50: WBC 6.9, RBC 5.75, Hgb 16.7, Hct 49.3, MCV 85.7, MCH 29.0, MCHC 33.9, RDW 12.3, Plt Count 203, MPV 9.8, Neut % (Auto) 85.0 H, Lymph % (Auto) 7.6 L, Dundy % (Auto) 5.1, Eos % (Auto) 0.7, Baso % (Auto) 0.7, Neut # (Auto) 5.8, L ymph # (Auto) 0.5 L, Dundy # (Auto) 0.4, Eos # (Auto) 0.1, Baso # (Auto) 0.1, Total Counted 100, Neutrophils % (Manual) 87 H, Lymphocytes % (Manual) 8 L, Monocytes % (Manual) 3, Basophils % (Manual) 2.0 H, Platelet Estimate Normal, RBC Morphology Normal, Sodium 138, Potassium 4.2, Chloride 100, Carbon Dioxide 24, Anion Gap 18.2 H, BUN 21 H, Creatinine 1.10, Estimated Creat Clear 98, Estimated GFR 66, Est GFR ( Amer) 80, Glucose 165 H, Calcium 9.7, Magnesium 1.6, Total Bilirubin 1.6 H, AST 30, ALT 25, Alkaline Phosphatase 120, Total Protein 8.3 H, Albumin 4.9, Globulin 3.4 H, Albumin/Globulin Ratio 1.4 04/28/25 21:18: Lactate 0.9 04/28/25 23:08: Urine Color Yellow, Urine Appearance Clear, Urine pH 5.5, Ur Specific [place] <= 1.005, Urine Protein Negative, Urine Glucose (UA) Negative, Urine Ketones Negative, Urine Blood Negative, Urine Nitrate Negative, Urine Bilirubin Negative, Urine Urobilinogen 0.2, Ur Leukocyte Esterase Negative, Urine RBC Occasional, Urine WBC 5-10, Ur Squamous Epith Cells 10-20, Urine Bacteria Trace, Urine Mucus 1+ 04/28/25 20:50 04/28/25 20:50 Orders (Tests/Meds): ED MEDICATIONS Generic Name Dose Route Start Last Admin Trade Name Freq PRN Reason Stop Dose Admin Sodium Chloride 10 ml 04/28/25 21:53 04/28/25 21:53 Sodium Chloride 0.9% 10ml Syr (Rad Only) IV 05/28/25 21:52 10 ml NEEDED PRN Administration Maintain IV Site Discontinued Medications Generic Name Dose Route Start Last Admin Trade Name Freq PRN Reason Stop Dose Admin Acetaminophen 650 mg 04/28/25 20:36 04/28/25 21:01 Acetaminophen 325mg Tab PO 04/28/25 20:37 650 mg ONCE ONE Administration Sodium Chloride 1,000 mls @ 999 mls/hr 04/28/25 20:36 04/28/25 22:07 Sod Chlor 0.9% 1000ml Bag IV 04/28/25 21:36 Infused .Q1H1M ONE Infusion Iopamidol 75 ml 04/28/25 21:53 04/28/25 21:53 Iopamidol-370 (76%);100ml Bottle IV 04/28/25 21:54 75 ml ONCE ONE Administration Ondansetron HCl 4 mg 04/28/25 20:36 04/28/25 21:02 Ondansetron 4mg/2ml Vial IV 04/28/25 20:37 4 mg ONCE ONE Administration ORDERS Category Date Time Status CT abdomen pelvis w con Stat Cat Scan 04/28/25 20:55 Completed XR chest portable Stat Exams 04/28/25 20:37 Completed CBC w/Auto Diff [Complete Blood Count Auto Diff] Stat Lab 04/28/25 20:50 Completed CMP [Comprehensive Metabolic Panel] Stat Lab 04/28/25 20:50 Completed Lactic Acid Stat Lab 04/28/25 21:18 Completed Magnesium Stat Lab 04/28/25 20:50 Completed Rapid PCR Covid and Flu A/B Stat Lab 04/28/25 20:31 Completed Urinalysis and Microscopic Stat Lab 04/28/25 23:08 Completed Blood Culture Stat Micro 04/28/25 21:05 Received Medical Decision Narrative: Initial impression of presenting illness: 69-year-old male presents emergency department with complaints of fever, cough, congestion, body aches with nausea and vomiting since earlier today. He reports that he took Tylenol sinus as well as Mucinex at approximately 3 PM. Differential diagnosis includes but is not limited to: Pneumonia, viral respiratory illness, gastritis, gastroenteritis, sepsis, dehydration, acute kidney Patient arrives hemodynamically stable, afebrile, without respiratory distress with vital signs interpreted by myself. Initial physical exam reveals mild tenderness on palpation of left lower quadrant with normal active bowel sounds. Rest of exam is unremarkable. Initial diagnostic plan: Laboratory studies including lactic acid and blood cultures, normal saline bolus for hydration, Tylenol for pain control, Zofran for nausea Results from initial plan were reviewed and interpreted by myself, pertinent positives include: Laboratory studies including COVID and flu swabs were nonactionable chest x-ray as well as CT of abdomen pelvis with IV contrast were also unremarkable. Urinalysis is pending at this time. Interventions in the ED: Patient was given normal saline bolus for hydration as well as Zofran for nausea. He was also given Tylenol for fever control. Handoff of care given to ED attending Dr. Thompson pending completion of patient's workup. <Rodrick Thompson, DO - Last Filed: 04/28/25 23:52> Medical Records Medical records reviewed: Yes I reviewed the patient's medical records. Vital Signs: 04/28/25 20:28 04/28/25 21:19 04/28/25 22:23 Temperature 100.6 F H Temperature Source Temporal Artery Scan Pulse Rate 89 81 Pulse Rate [Right] 102 H Respiratory Rate 18 Blood Pressure 147/74 H 135/68 Blood Pressure [Right Arm] 138/90 Blood Pressure Mean [Right Arm] 106 Blood Pressure Source [Right Arm] Automatic Cuff Blood Pressure Position [Right Arm] Sitting 02 Sat by Pulse Oximetry 95 96 97 Oxygen Delivery Method Room Air Room Air Room Air 04/28/25 23:14 04/28/25 23:44 Temperature 98.6 F Temperature Source Pulse Rate 78 80 Pulse Rate [Right] Respiratory Rate 16 16 Blood Pressure 129/72 136/71 Blood Pressure [Right Arm] Blood Pressure Mean [Right Arm] Blood Pressure Source [Right Arm] Blood Pressure Position [Right Arm] 02 Sat by Pulse Oximetry 98 Oxygen Delivery Method Room Air Room Air Lab Data Lab Results 04/28/25 20:31: SARS-CoV-2 (PCR) Not detected, Influenza A Untype (PCR) Not detected, Influenza Type B (PCR) Not detected 04/28/25 20:50: WBC 6.9, RBC 5.75, Hgb 16.7, Hct 49.3, MCV 85.7, MCH 29.0, MCHC 33.9, RDW 12.3, Plt Count 203, MPV 9.8, Neut % (Auto) 85.0 H, Lymph % (Auto) 7.6 L, Dundy % (Auto) 5.1, Eos % (Auto) 0.7, Baso % (Auto) 0.7, Neut # (Auto) 5.8, L ymph # (Auto) 0.5 L, Dundy # (Auto) 0.4, Eos # (Auto) 0.1, Baso # (Auto) 0.1, Total Counted 100, Neutrophils % (Manual) 87 H, Lymphocytes % (Manual) 8 L, Monocytes % (Manual) 3, Basophils % (Manual) 2.0 H, Platelet Estimate Normal, RBC Morphology Normal, Sodium 138, Potassium 4.2, Chloride 100, Carbon Dioxide 24, Anion Gap 18.2 H, BUN 21 H, Creatinine 1.10, Estimated Creat Clear 98, Estimated GFR 66, Est GFR ( Amer) 80, Glucose 165 H, Calcium 9.7, Magnesium 1.6, Total Bilirubin 1.6 H, AST 30, ALT 25, Alkaline Phosphatase 120, Total Protein 8.3 H, Albumin 4.9, Globulin 3.4 H, Albumin/Globulin Ratio 1.4 04/28/25 21:18: Lactate 0.9 04/28/25 23:08: Urine Color Yellow, Urine Appearance Clear, Urine pH 5.5, Ur Specific [place] <= 1.005, Urine Protein Negative, Urine Glucose (UA) Negative, Urine Ketones Negative, Urine Blood Negative, Urine Nitrate Negative, Urine Bilirubin Negative, Urine Urobilinogen 0.2, Ur Leukocyte Esterase Negative, Urine RBC Occasional, Urine WBC 5-10, Ur Squamous Epith Cells 10-20, Urine Bacteria Trace, Urine Mucus 1+ Orders (Tests/Meds): ED MEDICATIONS Generic Name Dose Route Start Last Admin Trade Name Freq PRN Reason Stop Dose Admin Sodium Chloride 10 ml 04/28/25 21:53 04/28/25 21:53 Sodium Chloride 0.9% 10ml Syr (Rad Only) IV 05/28/25 21:52 10 ml NEEDED PRN Administration Maintain IV Site Discontinued Medications Generic Name Dose Route Start Last Admin Trade Name Freq PRN Reason Stop Dose Admin Acetaminophen 650 mg 04/28/25 20:36 04/28/25 21:01 Acetaminophen 325mg Tab PO 04/28/25 20:37 650 mg ONCE ONE Administration Sodium Chloride 1,000 mls @ 999 mls/hr 04/28/25 20:36 04/28/25 22:07 Sod Chlor 0.9% 1000ml Bag IV 04/28/25 21:36 Infused .Q1H1M ONE Infusion Iopamidol 75 ml 04/28/25 21:53 04/28/25 21:53 Iopamidol-370 (76%);100ml Bottle IV 04/28/25 21:54 75 ml ONCE ONE Administration Ondansetron HCl 4 mg 04/28/25 20:36 04/28/25 21:02 Ondansetron 4mg/2ml Vial IV 04/28/25 20:37 4 mg ONCE ONE Administration ORDERS Category Date Time Status CT abdomen pelvis w con Stat Cat Scan 04/28/25 20:55 Completed XR chest portable Stat Exams 04/28/25 20:37 Completed CBC w/Auto Diff [Complete Blood Count Auto Diff] Stat Lab 04/28/25 20:50 Completed CMP [Comprehensive Metabolic Panel] Stat Lab 04/28/25 20:50 Completed Lactic Acid Stat Lab 04/28/25 21:18 Completed Magnesium Stat Lab 04/28/25 20:50 Completed Rapid PCR Covid and Flu A/B Stat Lab 04/28/25 20:31 Completed Urinalysis and Microscopic Stat Lab 04/28/25 23:08 Completed Blood Culture Stat Micro 04/28/25 21:05 Received Medical Decision Narrative: Initial impression of presenting illness: 69-year-old male presents emergency department with complaints of fever, cough, congestion, body aches with nausea and vomiting since earlier today. He reports that he took Tylenol sinus as well as Mucinex at approximately 3 PM. Differential diagnosis includes but is not limited to: Pneumonia, viral respiratory illness, gastritis, gastroenteritis, sepsis, dehydration, acute kidney Patient arrives hemodynamically stable, afebrile, without respiratory distress with vital signs interpreted by myself. Initial physical exam reveals mild tenderness on palpation of left lower quadrant with normal active bowel sounds. Rest of exam is unremarkable. Initial diagnostic plan: Laboratory studies including lactic acid and blood cultures, normal saline bolus for hydration, Tylenol for pain control, Zofran for nausea Results from initial plan were reviewed and interpreted by myself, pertinent positives include: Laboratory studies including COVID and flu swabs were nonactionable chest x-ray as well as CT of abdomen pelvis with IV contrast were also unremarkable. Urinalysis is pending at this time. Interventions in the ED: Patient was given normal saline bolus for hydration as well as Zofran for nausea. He was also given Tylenol for fever control. Handoff of care given to ED attending Dr. Thompson pending completion of patient's workup. Critical Care <Deyanira Schultz - Last Filed: 04/28/25 22:28> Critical Care Time Critical Care Time: No
--- NOTE | 2025-04-28 20:37 | XR_ITS ---
PROCEDURE INFORMATION: Exam: XR Chest Exam date and time: 04/28/2025 8:46 PM Age: 69 years old Clinical indication: Fever TECHNIQUE: Imaging protocol: Radiologic exam of the chest. Views: 1 view. COMPARISON: No relevant prior studies available. FINDINGS: Lungs: Minimal bibasilar subsegmental atelectasis or scarring. No focal consolidation or pulmonary edema. No pulmonary nodules. Pleural spaces: Normal. Heart/Mediastinum: Normal. Bones/joints: No acute abnormality. IMPRESSION: No acute cardiopulmonary abnormality.
[2025-04-28 20:46] LABS: Coronavirus 19, PCR Not Detected (NotDetected); Influenza A, PCR Not Detected (NotDetected); Influenza B, PCR Not Detected (NotDetected)
--- NOTE | 2025-04-28 20:55 | CT_ITS ---
PROCEDURE INFORMATION: Exam: CT Abdomen And Pelvis With Contrast Exam date and time: 04/28/2025 9:52 PM Age: 69 years old Clinical indication: Abdominal pain; Additional info: Llq pain/vomiting TECHNIQUE: Imaging protocol: Computed tomography of the abdomen and pelvis with contrast. Radiation optimization: All CT scans at this facility use at least one of these dose optimization techniques: automated exposure control; mA and/or kV adjustment per patient size (includes targeted exams where dose is matched to clinical indication); or iterative reconstruction. Contrast material: ISOVUE; Contrast volume: 75 ml; Contrast route: IV; COMPARISON: CR XR CHEST PORTABLE 04/28/2025 8:46 PM FINDINGS: Lungs: Minimal bibasilar atelectasis or scarring. Liver: Normal. Gallbladder and biliary ducts: Normal. Pancreas: Normal. Spleen: Normal. Adrenal glands: Normal. No mass. Kidneys and ureters: Multiple bilateral simple renal cysts, for which no further evaluation necessary. Bilateral nonobstructive nephrolithiasis. Stomach and bowel: Normal. Appendix: Appendix normal. Intraperitoneal space: Unremarkable. No free air. No significant fluid collection. Vasculature: Unremarkable. No abdominal aortic aneurysm. Lymph nodes: Unremarkable. No enlarged lymph nodes. Urinary bladder: Unremarkable as visualized. Reproductive: Unremarkable as visualized. Bones/joints: No acute abnormality. Soft tissues: Small fat containing left inguinal hernia. IMPRESSION: No acute abdominal or pelvic abnormality.
[2025-04-28] MEDS: 0.9 % SODIUM CHLORIDE 1000ML 1,000 ML 999 ML IV (21:01)
[2025-04-28] MEDS: ACETAMINOPHEN 325MG TAB 650 MG PO (21:01)
[2025-04-28] MEDS: ONDANSETRON 4MG/2ML VIAL 4 MG IV (21:02)
--- OUTSIDE RECORDS SUMMARY | 2025-04-28 21:03 | XMS_ITS | Data Portability ---
Author Organization [facility] PERCY Dietrich [place] CLOSED Address [address] [place] [address] Care Team Providers Care Field Gauger Name Role Phone MIKA OLVERA Primary Care Provider YONAS PAINTING Radar Scientist Assessment No assessment recorded. Plan of Treatment Reminders Order Date Submit Date Provider Last Modified By Organization Details Last Modified Time Details Appointments DERM WORK-IN PROVIDER APPROVED 2024 04:10P Babita RICE MD Not available Not available Not available Lab surgical pathology study 2023 024 [facility], [address] [place] [address], [phone], 07/16/2024 11:07:06 Referral None recorded. Procedures None recorded. Surgeries None recorded. Imaging None recorded. Medication Orders triamcino lone acetonide 0.1 % topical ointment 2024 025 [email or web address] #[id number], [address], [id number], 09/01/2024 16:46:07 hydrocort isone 2.5 % topical cream 2023 024 [email or web address] #[id number], [address], [phone], 07/14/2024 12:14:51 ketoconaz ole 2 % shampoo 2023 024 [email or web address] [facility] #[id number], [address] [facility] [address] [place], [phone], 07/14/2024 12:14:51 ketoconaz ole 2 % topical cream 2023 024 [email or web address] [facility] #[id number], [address] [facility] [address] [place], [phone], 07/14/2024 12:14:51 ketoconaz ole 2 % shampoo 2023 024 [facility] #[id number], [address] [facility] [address] [place], [phone], 10/01/2023 14:14:05 Patient TargetsNo targets recorded. Patient Instructions Encounter Date Encounter Id Patient Instructions Last Modified By Organization Details Last Modified Time 07/14/2024 [id number] Recommended returning to clinic in 6 months for FBSE Not available 07/14/2024 09:39:36 09/01/2024 [id number] Follow up as scheduled 12/29/24 for FBSE [email or web address] Not available 09/01/2024 16:40:25 Reason for Referral None Reported. Results Created Date Observation Date Name Description Value Unit Range Abnormal Flag Note LastModifiedBy Organization Detail LastModifiedTime 07/14/20 24 07/14/2024 SURGI PHILL surgical SEE BELOW abnormal [facility] topat holog y Repor t NAME: FABI JOHNSTON JR PATH: [id number] PROCE DURE DATE: 07/14 SIGNO UT DATE: 07/16 Copy to: Diagn osis: A: Midli ne back @ T4- BASAL CELL CARCI NOMA, SUPER FICIA L Comme nt: Both perip heral mary ns are invol filemon with tumor . AJCC: T1, Nx, Mx B: Right poste rior shoul kae- BASAL CELL CARCI NOMA, SUPER FICIA L Comme nt: The mary ns are free of tumor in the secti ons exami sanjay. AJCC: T1, Nx, Mx SOURC E OF SPECI MEN: 1) SKIN, MIDLI NE BACK @ T4 2) SKIN, R POSTE RIOR SHOUL KAE CLINI PHILL INFOR MATIO N: A) R/O: BCC B) R/O: BCC Gross Descr iptio n: A) The speci men consi sted of a shay fragm ent which was trise cted and measu red 9 x 9 x 1 mm. All submi tted in one casse tte. B) The speci men consi sted of a shay fragm ent which was bisec trav and measu red 7 x 6 x < 1 mm. All submi tted in one casse tte. Micro scopi c Descr iptio n: A: Super ficia l aggre white of basal oid cells are prese nt at the derma l-epi derma l junct ion. B: Super ficia l aggre white of basal oid cells are prese nt at the derma l-epi derma l junct ion. SUE BURCIAGA MD Dorothea d Out Date: 07/16 11:05 1 Not Available [facility] [address] [place] [address], [phone], 07/16/2024 11:07:06 Result Notes None recorded. Problems Name Problem SNOMED Code Status Onset Date Resolution Date Notes Provider Name and Address Organization Details Recorded Time History of malignant neoplasm of skin 342627333 Active 024 [place] [facility] 07:[facility]:54 Problem Notes None recorded. Procedures Surgical History Date Name Laterality Status Provider Name and Address Organization Details Recorded Time 5 DAK - ED&C; trunk,arm,leg [facility] [place] [facility] 09/01/2024 16:36:03 4 DAK - Cryo AK [facility] [place] [facility] 07/14/2024 09:39:04 4 DAK - Biopsy, Tangential completed [facility] 07/14/2024 09:39:21 4 DAK - Cryo AK completed [facility] 10/01/2023 08:03:21 Mohs completed [facility] 10/01/2023 07:39:00 nasal septoplasty completed [facility] 10/01/2023 07:39:07 repair of umbilical hernia completed [facility] 10/01/2023 07:39:17 Imaging Results None recorded. Procedure Notes None recorded. Medical Equipment None Reported. Allergies Allergen ID Allergen Name Allergen Category Reaction Reaction Severity Criticality Documentation Date Start Date Code Code System Note Provider Name and Address Organization Details Recorded Time 563440 Product containin g penicilli n (product) medicatio n Not available Not available Not available 10/01/2023 42225 8001 SNOMED [facility] 4 07:39:32 764808 Mastisol Liquid Adhesive medicatio n rash Not available Not available 10/01/2023 [facility] 4 07:39:49 Medications Name Sig Start Date Stop Date Status Note LastModified by Organization Details LastModified Time ketoconazole 2 % shampoo APPLY TO THE AFFECTED AREA(S), LATHER, LEAVE IN PLACE FOR 5 MINUTES, AND THEN RINSE OFF WITH WATER BY TOPICAL ROUTE 3X WEEKLY 2023 active Not Available Not Available Not Avai lable triamcinolone acetonide 0.1 % topical ointment 2x daily for up to 2 weeks, take 1 week break, repeat as needed 2024 active Not Available Not Available Not Avai lable hydrocortison e 2.5 % topical cream 1x daily for up to one week, take one week break, repeat as needed 2023 active Not Available Not Available Not Avai lable ketoconazole 2 % topical cream APPLY TOPICALLY TO THE AFFECTED AREA TWICE DAILY active Not Available Not Available No t Available Vitamin C active Not Available Not Nohemi ilable Not Available aspirin active Not Available Not Avail able Not Available levothyroxine active Not Available Not Available Not Available zinc active Not Available Not Availa ble Not Available Vitamin D3 active Not Available Not Av ailable Not Available metformin active Not Available Not Nohemi ilable Not Available multivitamin active Not Available Not Available Not Available olmesartan active Not Available Not Av ailable Not Available vitamin G72-gfiqw acid active Not Available Not Available Not Available Mounjaro active Not Available Not Avai lable Not Available Vitals None Recorded Social History None recorded. Functional Status None recorded. Mental Status None recorded. Family History Nothing Reported. Medical History Condition Response Skin Cancer Y Basal Cell Carcinoma Y Other Skin Condition Y Past Encounters Encounter ID Performer Location Encounter Start Date Encounter Closed Date Diagnosis/Indication Diagnosis SNOMED-CT Code Diagnosis ICD10 Code Diagnosis IMO Codes Diagnosis Note [id number] YONAS RICE MD [address] [address] 10/01/2023 07:35:15 10/01/2023 08:10:21 History of malignant neoplasm of skin 986027725 Z85.828 - No evidence of recurrence today- Call with any worrisome lesions or if treated lesions return- Return at regular intervals for skin exam as recommende d Most recent, 03/2022 Multiple b enign melanocytic nevi 159907504 D22.5 - Benign moles seen on exam today - SPF 30 or higher broad-spec trum sunscreen recommende d with re-applica tion every 2 hours - Discussed sun protection measures, including wide-brimm ed hat, sun-protec tive clothing, and avoidance of sun during peak hours of 10am-4pm - Avoid tanning beds as these can increase the chances of all 3 types of skin cancer - Instructed to monitor for changes and to call us for appointmen t with any changing or worrisome lesions Seborrheic keratosis 394 851946 L82.1 - Benign overgrowth s of skin - Hereditary Senile angioma 9645643 I 78.1 - Benign blood vessel growths - Hereditary Solar lentigo 83482649 L 81.4 - Benign brown spots - Sun-induce d Actinic keratosis 087423 007 L57.0 Actinic keratoses are precancero us lesions that may progress to squamous cell carcinoma if untreated. UV light and genetics may increase risk. Treated lesions should blister, scab over, and heal within a few weeks. If treated lesion(s) does not resolve within 1-2 months, patient agrees to follow up for re-evaluat ion. Acne vulgaris 98398997 L 70.0 Discussed benign acneNo need for treatmentL ooks like it is healingDo not scratch Seborrheic dermatitis 50 600605 L21.8 Seborrheic dermatitis can cause itching, redness and dandruff in the scalp, brows, facial folds and chest. A yeast naturally found on the skin can overgrow and cause this reaction in some people. The condition may wax and wane. Continue Ketoconazo le 2% cream BID prescribed .Will send in ketoconazo le 2% shampoo to use TIW - let sit 5 minutes before rinsingWil l consider topical steroid if no improvemen t. [id number] YONAS RICE MD [address] [place] [address] 07/14/2024 08:48:27 07/16/2024 08:36:52 History of malignant neoplasm of skin 141231637 Z85.828 - No evidence of recurrence today- Call with any worrisome lesions or if treated lesions return- Return at regular intervals for skin exam as recommende d Most recent, 03/2022 Multiple b enign melanocytic nevi 880148713 D22.5 - Benign moles seen on exam today - SPF 30 or higher broad-spec trum sunscreen recommende d with re-applica tion every 2 hours - Discussed sun protection measures, including wide-brimm ed hat, sun-protec tive clothing, and avoidance of sun during peak hours of 10am-4pm - Avoid tanning beds as these can increase the chances of all 3 types of skin cancer - Instructed to monitor for changes and to call us for appointmen t with any changing or worrisome lesions Seborrheic keratosis 394 858414 L82.1 - Benign overgrowth s of skin - Hereditary Senile angioma 6324820 I 78.1 - Benign blood vessel growths - Hereditary Solar lentigo 04973080 L 81.4 - Benign brown spots - Sun-induce d Seborrheic dermatitis 50 491206 L21.8 Seborrheic dermatitis can cause itching, redness and dandruff in the scalp, brows, facial folds and chest. A yeast naturally found on the skin can overgrow and cause this reaction in some people. The condition may wax and wane. Will refill Ketoconazo le 2% cream BID prescribed .Will refill ketoconazo le 2% shampoo to use TIW - let sit 5 minutes before rinsingWil l send in hydrocorti [facility] 2.5% cream to use qd for up to one week, take one week break, repeat as needed Neoplasm o f uncertain behavior of skin 70687555 D48.5 Midline back @ T4 - 9mm pink patch with vessels - R/o BCCRight posterior shoulder - 8mm pink patch with vessels - R/o BCC Actinic keratosis 815988 007 L57.0 Actinic keratoses are precancero us lesions that may progress to squamous cell carcinoma if untreated. UV light and genetics may increase risk. Treated lesions should blister, scab over, and heal within a few weeks. If treated lesion(s) does not resolve within 1-2 months, patient agrees to follow up for re-evaluat ion. [id number] YONAS RICE MD [address] [address] 09/01/2024 16:06:20 09/03/2024 11:24:07 Basal cell carcinoma of truncal skin 752162761 C44.519 Biopsy proven BCC, superficia l on the midline back @ T4Path #: [id number] discussed with patientSit e confirmed with photo Basal cell carcinoma of upper extremity 483431094 C44.612 Biopsy proven BCC, superficia l on the right posterior shoulderPa th #: [id number] 9Pathology discussed with patientSit e confirmed with photo Epidermoid cyst of skin 417973703 L72.0 Cysts are dilated follicles with keratinous material within. Can become inflamed if they rupture. Risks, benefits, side effects, alternativ es and options of excision were discussed with patient and the patient voiced understand ing. Rec no treatment if not bothersome . If it starts to change or become painful let us know. Atopic dermatitis 393655 01 L20.89 Tendency for sensitive, rashy skin. Sometimes associated with allergies and/or asthma. Avoid fragrances and dyes in skin products and detergents /fabric softeners. Ointments such as petrolatum and Aquaphor are best applied to damp skin, straight out of bath or shower-soa k and smear. Heavy creams such as Cerave or Cetaphil cream are good on dry skin. Creams are preferable to lotions. Started 07/2024Deni es new medication s Recommende d adding a humidifier to the room during winter monthsPt does have wood stove Rx given for triamcinol one 0.1% ointment to use BID to red scaly areas only for up to 2 weeks, then 1 week break, then can restart if needed. Don't use in body folds, face, groin, or axillae. Call if not getting better. Health Concerns Section Related Observation LastModified by Organization Detai ls LastModified Time None Recorded Concern Status LastModified by Organization Details LastModified Time None Recorded Advance Directives Directive None Recorded Payers Insurance Date Sequence Insurance Name Policy Number Policy Escobar Covered Member ID Escobar Member ID Guarantor Name 03/29/2025 2 [facility] (MEDICARE SUPPLEMENT) Rayray Zepeda [id number] Rayray Zepeda 03/28/2025 1 [place] Rayray Zepeda [id number] Rayray Zepeda Notes Date Note Type Note Provider Name and Address Organization Details Recorded Time 10/01/2023 text/html ROS as noted in the HPI Here for a full body skin examination - last skin check: 01/16/23- history of skin cancer - BCC- last skin cancer was in BCCx2; R lateral back @T4 & R mid back @T6 - 03/2022- spots of concern today: spot on chest very irritating pt having a laser procedure done soon so pt is requesting we hold off on treating with LN2 on face YONAS RICE MD [address] [place] [address], [phone], [facility] 10/01/2023 12:33:28 07/14/2024 text/html ROS as noted in the HPI Here for a waist up skin examination - last skin check: 09/2023- history of skin cancer - BCC- last skin cancer was in BCCx2; R lateral back @T4 & R mid back @T6 - 03/2022- spots of concern today: R cheek - recurring, face Patient prescribed Keto Shampoo for agnieszka derm but finding minimal efficacy from this YONAS RICE MD [facility] [place], [address], [facility] 07/14/2024 09:48:11 09/01/2024 text/html Patient is here for an ED&C - type of cancer: superficial BCC- location: Midline back @ [id number] is here for an ED&C - type of cancer: superficial BCC- location: Right posterior shoulder [place] [address] [place] [address], [phone], [facility] 09/01/2024 16:43:59
--- OUTSIDE RECORDS SUMMARY | 2025-04-28 21:03 | XMS_ITS | Encounter Summary ---
Author Organization [facility] Address [address] [place] [address] Care Team Providers Care Ore Tester Name Role Phone Madi Gu Primary Care Provider [phone] Reason for Visit * Reason Comments Med Refill Encounter Details Date Type Department Care Team (Late Contact Info) Description 03/23/[address] [facility] [address] [place] [address] Madi Gu PA [address] [place] [address] Type 2 diabetes mellitus without complication, without long-term current use of insulin Social History Tobacco Use Types Packs/Day Years Used Date Smoking Tobacco: Never Passive Smoke Exposure: Never Smokeless Tobacco: Never Alcohol Use Standard Drinks/Week Comments Not Currently [...] on file documented as of this encounter Functional Status documented as of this encounter Plan of Treatment Upcoming Encounters Date Type Department Care Team (Late st Contact Info) Description 03/28/2026 9:00 AM EDT Office Visit [facility] [address] [place] [phone] Madi Gu PA [address] [place] [address] documented as of this encounter Visit Diagnoses Diagnosis Type 2 diabetes mellitus without complication, without long-term current use of insulin documented in this encounter Care Teams Ore Tester Relationship Specialty Start Date End Date Madi Gu PA [address] [place] [address] PCP - General Physician Soldering Inspector 05/23/21 documented as of this encounter
--- OUTSIDE RECORDS SUMMARY | 2025-04-28 21:03 | XMS_ITS | Encounter Summary ---
Author Organization [facility] Address [address] [place] [address] Care Team Providers Care Fund Controller Name Role Phone Madi Gu Primary Care Provider Reason for Visit * Reason Onset Date Comments Lab results 02/26/2025 Encounter Details Date Type Department Care Team (Late st Contact Info) Description 02/26/2025 Telephone [facility] [address] [facility] [place] [address] Madi Gu PA [address] [place] [address] Lab results Social History Tobacco Use Types Packs/Day Years Used Date Smoking Tobacco: Never Passive Smoke Exposure: Never Smokeless Tobacco: Never Alcohol Use Standard Drinks/Week Comments Not Currently 0 (1 standard drink = 0.6 oz pur e alcohol) Occasional glass of wine PHQ-2 Answer Date Recorded Retired PHQ-9: Brief Depression Severity Measure Score 0 03/28/2022 PHQ-2 Answer Date Recorded Patient Health Questionnaire-2 Score 0 12/02/2024 Sex and Gender Information Value Date Recorded Sex Assigned at Male 11/25/2024 10:38 AM EDT Legal Sex Male 1:09 PM EDT Gender Identity Not on file Sexual Orientation Straight 11/25/2024 10 :38 AM EDT Occupation Industry Job Start Date Job End Date Contractor Not on file Not on file Not on file documented as of this encounter Miscellaneous Notes * Telephone Encounter - Emiyl Barahona MA - 03/01/2025 10:08 AM EDT Pt will check w/ his ins. * Telephone Encounter - Madi Gu PA - 02/28/2025 9:04 AM EDT Note he has medicare insurance. Not sure if they will cover hep A and B if obtaining in office. Please verify * Telephone Encounter - Emily Barahona MA - 02/26/2025 2:30 PM EDT Pt aware and understood. If he doesn't go to to get it, he'll come here. * Telephone Encounter - Fede Harry MD - 02/26/2025 1:25 PM EDT Please call. Blood type is a negative. He is immune to measles mumps rubella. He has had previous chickenpox. It looks like he previously has had the shingles vaccine so that is good. Hepatitis B and A are negative for any type of immunity related to previous exposure or vaccination. He would be eligible to get hepatitis A/B combination/Twinrix but it would probably not give much immunity before his trip next week. It would start the process of starting the immunity to hepatitis A and B * Telephone Encounter - Yuliya Fuchs MA - 02/26/2025 1:04 PM EDT Lab results are in, he wants to check to make sure if he needs vaccinations before his trip to [facility] Saturday. documented in this encounter Plan of Treatment Upcoming Encounters Date Type Department Care Team (Late st Contact Info) Description 03/28/2026 9:00 AM EDT Office Visit [facility] [address] [place] [phone] Madi Gu PA [address] [place] [address] documented as of this encounter Visit Diagnoses Not on filedocumented in this encounter Care Teams Fund Controller Relationship Specialty Start Date End Date Madi Gu PA [address] [place] [address] PCP - General Physician Director Of Direct Marketing 05/23/21 documented as of this encounter
--- OUTSIDE RECORDS SUMMARY | 2025-04-28 21:03 | XMS_ITS | Encounter Summary ---
Author Organization [facility] Address [address] [place] [address] Care Team Providers Care Underwriting Clerk Name Role Phone Madi Gu Primary Care Provider [phone] Reason for Visit * Reason Onset Date Comments Med Refill 04/13/2025 Encounter Details Date Type Department Care Team (Late st Contact Info) Description 04/13/2025 Refill [facility] [address] [facility] [place] [address] Madi Gu PA [address] [facility] [place] [address] Acquired hypothyroidism Social History Tobacco Use Types Packs/Day Years [...] encounter Miscellaneous Notes * Telephone Encounter - Toby Elise RegSched Rep - 04/13/2025 3:33 PM EDT Caller: Rayray Zepeda Jr Relationship: Self Best call back number: [phone] Requested Prescriptions: Requested Prescriptions Pending Prescriptions Disp Refills thyroid (WEIGHT COUNT OPERATOR Thyroid) 15 MG tablet 30 tablet 1 Sig: Take 1 tablet by mouth Daily. Pharmacy where request should be sent: [facility] [address] [place] [address] RD. [place] - [phone] - [phone] FX Last office visit with prescribing clinician: 03/23/2025 Last telemedicine visit with prescribing clinician: Visit date not found Next office visit with prescribing clinician: 03/28/2026 Additional details provided by patient: MARY ALICE HAS NOT BEEN ABLE TO FILL THIS PRESCRIPTION. PLEASE MOVE TO THE ABOVE PHARMACY. Does the patient have less than a 3 day supply: [x] Yes [] No Would you like a call back once the refill request has been completed: [] Yes [x] No If the office needs to give you a call back, can they leave a voicemail: [] Yes [x] No Saira Patrick 04/13/25 15:34 EDT documented in this encounter Plan of Treatment Upcoming Encounters Date Type Department Care Team (Late st Contact Info) Description 03/28/2026 9:00 AM EDT Office Visit [facility] [address] [place] [address] Madi Gu PA [address] [place] [address] documented as of this encounter Visit Diagnoses Diagnosis Acquired hypothyroidism Unspecified hypothyroidism documented in this encounter Care Teams Underwriting Clerk Relationship Specialty Start Date End Date Madi Gu PA [address] [place] [address] PCP - General Physician Fly Worker 05/23/21 documented as of this encounter
--- OUTSIDE RECORDS SUMMARY | 2025-04-28 21:03 | XMS_ITS | Encounter Summary ---
Author Organization [facility] Address [address] [place] [address] Care Team Providers Care Tax Collector Name Role Phone Mika Gu Primary Care Provider [phone] Reason for Visit * Reason Onset Date Comments BLOOD PRESSURE READINGS 02/25/2025 Encounter Details Date Type Department Care Team (Late st Contact Info) Description 02/25/2025 Telephone [facility] [address] [place] [address] Mika Gu PA [address] [place] [address] BLOOD PRESSURE READINGS Social History Tobacco Use Types Packs/Day Years [...] encounter Miscellaneous Notes * Telephone Encounter - Emily Barahona MA - 03/01/2025 10:10 AM EDT Pt aware and understood. * Telephone Encounter - Mika Gu PA - 03/01/2025 8:54 AM EDT No significant improvement since increasing dose of olmesartan to 40 mg daily. Any other BP medications he has been on in the past? May need to add a second agent. * Telephone Encounter - Myron Trujillo RegSched Rep - 02/25/2025 1:12 PM EDT Caller: Rayray Zepeda Jr Relationship: Self Best call back number: What was the call regarding: PATIENT IS CALLING TO REPORT HIS BLOOD PRESSURE READINGS TO MIKA GU 02-23-25 147/85 02-24-25 157/87 02-25-25 158/91 PATIENT SAID HE IS GOING OVERSEES Saturday03-03-25 PLEASE CALL AND ADVISE documented in this encounter Plan of Treatment Upcoming Encounters Date Type Department Care Team (Late st Contact Info) Description 03/28/2026 9:00 AM EDT Office Visit [facility] [address] [place] [address] Mika Gu PA [address] [place] [address] documented as of this encounter Visit Diagnoses Not on filedocumented in this encounter Care Teams Tax Collector Relationship Specialty Start Date End Date Mika Gu PA [address] [place] [address] PCP - General Physician Pharmacogeneticist 05/23/21 documented as of this encounter
--- OUTSIDE RECORDS SUMMARY | 2025-04-28 21:03 | XMS_ITS | Clinical Summary ---
Author Organization [facility] Address [address] [place] [address] Care Team Providers Care Guest Services Lead Name Role Phone Madi Gu Primary Care Provider Allergies Active Allergy Reactions Criticality Noted Date Comments Penicillin G Other (See Comments) 03/23/2025 Penicillins Rash Low 10/24/2007 Not sure if this was the cause Patient states the rash was localized, for years prior to that he took penicillin with no problem. Is this a true allergy? Not sure if this was the cause Wound Dressing Adhesive Rash Low 03/23/2025 Medications loratadine (Claritin) 10 MG tablet Take 1 tablet by mouth Daily. Active aspirin 81 MG chewable tablet Chew 1 tablet Daily. Active cetirizine (ZyrTEC) 10 MG chewable tablet Chew Daily. Ac tive ketorolac (ACULAR) 0.5 % ophthalmic solution 11/10/19 25 Active Cholecalciferol (Vitamin D3) 50 MCG (1999) capsule Active meloxicam (MOBIC) 7.5 MG tabletIndications: Chronic pain of right knee Take 1 tablet by mouth Daily. 90 tablet 1 03/23/20 25 Active ezetimibe (ZETIA) 10 MG tabletIndications: Mixed hyperlipidemia Take 1 tablet by mouth Daily. 90 tablet 3 03/23/20 25 Active olmesartan (Benicar) 40 MG tabletIndications: Primary hypertension Take 1 tablet by mouth Daily. 90 tablet 3 03/23/20 25 Active Tirzepatide 10 MG/0.5ML solution auto-injectorIndic ations:Type 2 diabetes mellitus without complication, without long-term current use of insulin Inject 10 mg under the skin into the appropriate area as directed 1 (One) Time Per Week. 6 mL 3 03/23/20 25 Active thyroid (TEST ENG Thyroid) 15 MG tabletIndications: Acquired hypothyroidism Take 1 tablet by mouth Daily. 30 tablet 1 04/14/20 25 Active thyroid (TEST ENG Thyroid) 15 MG tabletIndications: Acquired hypothyroidism Take 1 tablet by mouth Daily. 30 tablet 1 03/30/20 25 025 Discontin ued(Reord er) Active Problems Problem Noted Date Diagnosed Date History of colon polyps 01/22/2022 Class 1 obesity due to exces s calories with serious comorbidity and body mass index (BMI) of 34.0 to 34.9 in adult 05/28/2018 Assessment & Plan (07/13/2022 10:19 AM EST): Patient's (Body mass index is 34.57 kg/m .) indicates that they are obese (BMI >30) with health conditions that include diabetes mellitus . Weight is unchanged. BMI is is above average; BMI management plan is completed. We discussed portion control, increasing exercise and pharmacologic options including Should benefit from addition of Mounjaro for diabetes. Type 2 diabetes mellitus wit hout complication, without long-term current use of insulin 05/28/2018 Assessment & Plan (07/13/2022 10:20 AM EST): Diabetes is worsening. Start metformin 500 mg twice daily. Start Mounjaro 2.5 mg weekly Diabetes will be reassessed in 1 month. Plan will be to maximize metformin. Prescription for Mounjaro will be sent later next week to assess affordability. Kidney stones Squamous cell carcinoma of skin Seasonal allergies Hypogonadism male Hypertension Mixed hyperlipidemia Erectile dysfunction Resolved Problems Problem Noted Date Diagnosed Date Resolved Date Prediabetes 05/28/2018 Encounters Date Type Department Care Team Description 04/13/2025 Refill [facility] [address] [address] Madi Gu PA Acquired hypothyroidism 03/29/2025 Results Follow-Up [facility] [address] [address] Madi Gu PA 03/23/2025 11:30 AM EDT Office Visit [facility] [address] [place] [address] Madi Gu PA Medicare annual wellness visit, subsequent (Primary Dx); Mixed hyperlipidemia; Primary hypertension; Vitamin D insufficiency; Screening for malignant neoplasm of prostate; Type 2 diabetes mellitus without complication, without long-term current use of insulin; Chronic pain of right knee; Right flank pain; RLQ abdominal pain 03/23/2025 Travel 03/23/2025 Refill [facility] [address] [place] [address] Madi Gu PA Mixed hyperlipidemia 03/23/2025 Refill [facility] [address] [place] [address] Madi Gu PA Type 2 diabetes mellitus without complication, without long-term current use of insulin 02/26/2025 Telephone [facility] [address] [place] [address] Madi Gu PA Lab results 02/25/2025 Telephone [facility] [address] [place] [address] Madi Gu PA BLOOD PRESSURE READINGS 02/19/2025 8:40 AM EDT Lab [facility] [address] [place] [address] Travel advice encounter; Encounter for screening for other viral diseases 02/19/2025 Travel 02/17/2025 Telephone [facility] [address] [place] [address] Madi Gu PA Labs Only from Last 3 Months Immunizations Immunization Administration Dates Next Due COVID-19 (MODERNA) 1st,2nd,3 rd Dose Monovalent 08/17/2020,07/20/2020 COVID-19 (MODERNA) Monovalen t Original Booster 11/21/2021,05/13/2021 FLUAD TRI 65YR+ 04/24/2024 Flu Vaccine Quad PF >36MO 04/26/2016 Fluzone >6mos 05/11/2018,07/24/2017 Fluzone (or Fluarix & Flulav al for VFC) >6mos 04/26/2016 Fluzone High-Dose 65+yrs 04/22/2023,05/09/2022,1 Influenza, Unspecified 05/15/2018 Pneumococcal Conjugate 20-Valent (PCV20) 023,03/28/2022 Pneumococcal Polysaccharide (PPSV23) 12/29/2018 Shingrix 09/17/2023,05/16/2023 Tetanus 07/15/2008 Family History Medical History Relation Name Comments Anxiety disorder Daughter Anjelica Light Heart failure Father COPD Mother Lynette Zepeda COPD Relation Name Status Comments Daughter Anjelica Light Alive Father Mother Lynette Zepeda Social History Tobacco Use Types Packs/Day Years [...] file Not on file Not on file Last Filed Vital Signs Vital Sign Reading Time Taken Comments Blood Pressure 118/68 03/23/2025 11:20 AM EDT Pulse 56 03/23/2025 11:20 AM EDT Temperature 36.4 C (97.5 F) 03/23/2025 11:20 AM EDT Respiratory Rate 18 09/17/2023 2:23 PM EST Oxygen Saturation 94% 03/23/2025 11:20 AM EDT Inhaled Oxygen Concentration - - Weight 112 kg (248 lb) 03/23/2025 11:20 AM EDT Height 185.4 cm (6' 1 ) 03/23/2025 11:20 AM EDT Body Mass Index 32.72 03/23/2025 11:20 AM EDT Plan of Treatment Upcoming Encounters Date Type Department Care Team (Late st Contact Info) Description 03/28/2026 9:00 AM EDT Office Visit [facility] [address] [place], [place] [address] Madi Gu PA [address] [place] [address] Health Maintenance Due Date Last Done Comments DIABETIC FOOT EXAM 1965 COLOGUARD 11/18/1999 COLON CANCER SCREENING 5 YEAR SIGMOIDOSCOPY 11/18/1999 CT COLONOGRAPHY 11/18/1999 FECAL OCCULT BLOOD TEST 11/18/1999 FIT Testing (1 year) 11/18/1999 DIABETIC EYE EXAM 10/13/2024 10/14/2023 (Patient-Reported (Performed Externally)), 10/13/2022 (Patient-Reported (Performed Externally)), 10/13/2021 (Patient-Reported (Performed Externally)), Additional history exists INFLUENZA VACCINE 02/12/2025 04/24/2024, , 04/24/2024, Additional history exists COVID-19 Vaccine ( season) 2025 04/24/2024, 04/22/2023, 05/09/2022, Additional history exists HEMOGLOBIN A1C 09/20/2025 03/23/2025, 11/13, 01/09/2024, Additional history exists ANNUAL WELLNESS VISIT 03/23/2026 03/23/2025 , 03/23/2025, 01/09/2024, Additional history exists LIPID PANEL 03/23/2026 03/23/2025, 12/14, 03/28/2022, Additional history exists URINE MICROALBUMIN-CREATININE RATIO (uACR) 03/23/2026 03/23/2025, 12/29/2018 COLONOSCOPY 01/20/2030 01/20/2025, 07/0 03/2025, 01/20/2025, Additional history exists COLORECTAL CANCER SCREENING 01/20/2030 TDAP/TD VACCINES (3 - Td or Tdap) 12/11/2034 12/11/2024, 04/03/2016 (Declined) HEPATITIS C SCREENING Addressed 04/03/2016 (Decline d) Overridden with the intention of not completing the topic Pneumococcal Vaccine 50+ Completed 023, 03/28/2022, 12/29/2018 ZOSTER VACCINE Addressed 09/17/2023, 1108/2022, 04/03/2016 (Declined) Overridden with the intention of not completing the topic Procedures Procedure Name Priority Date/Time Associated Diagnosis Comments CBC AND DIFFERENTIAL Routine 03/23/2025 12:31 PM EDT Medicare annual wellness visit, subsequent Mixed hyperlipidemia Primary hypertension Type 2 diabetes mellitus without complication, without long-term current use of insulin Right flank pain RLQ abdominal pain PSA SCREEN Routine 03/23/2025 12:31 PM EDT Medicare annual wellness visit, subsequent Screening for malignant neoplasm of prostate VITAMIN D,25-HYDROXY Routine 03/23/2025 12:31 PM EDT Medicare annual wellness visit, subsequent Vitamin D insufficiency TSH Routine 03/23/2025 12:31 PM EDT Medicare [...] annual wellness visit, subsequent Right flank pain ABO/RH Routine 02/19/2025 8:22 AM EDT Travel advice encounter ESTROGENS, TOTAL Routine 02/19/2025 8:22 AM EDT ESTRADIOL Routine 02/19/2025 8:22 AM EDT TESTOSTERONE (FREE AND TOTAL), LC/MS Routine 02/19/2025 8:22 AM EDT VARICELLA ZOSTER ANTIBODY, IGG Routine 02/19/2025 8:22 AM EDT Travel advice encounter MEASLES/MUMPS/[facility]LLA IMMUNITY ([facility]) Routine 02/19/2025 8:22 AM EDT Travel advice encounter HEPATITIS A ANTIBODY, IGM Routine 02/19/2025 8:22 AM EDT Travel advice encounter HEPATITIS B SURFACE ANTIBODY Routine 02/19/2025 8:22 AM EDT Travel advice encounter Encounter for screening for other viral diseases SCANNED - COLONOSCOPY 01/20/2025 from Last 3 Months or Most Recently Relevant to Health Maintenance Results * PSA SCREENING (03/23/2025 12:31 PM EDT) PSA 0.5 0.0 - 4.0 ng/mL [facility] Comment: Mariam ECLIA methodology. According to the [place] [employer], Serum PSA should decrease and [...] 12:3 1 PM EDT 03/23/2025 Narrative [facility] (AMBULATORY) - 03/24/2025 8:12 AM EDT Performed at: - [facility] [id number] Mva Still Operator: Curry Elise PhD, Phone: [phone] Patient Fasting: Y Madi RUSS LAB BLOOD ORDERABLES Final Res ult [facility] (AMBULATORY) [address] [place] [address], [facility] [address] [place] [address], * Vitamin D 25 hydroxy (03/23/2025 12:31 PM EDT) Pathologist [facility] 25 Hydroxy, Vitamin D 45.8 30.0 - 100.0 ng/mL [facility] Comment: Vitamin D deficiency has been defined by the [place] of Medicine and an Endocrine Society practice guideline as a level of serum 25-OH vitamin D less than 20 ng/mL (1,2). The Endocrine Society went on to further define vitamin D insufficiency as a level between 21 and 29 ng/mL (2). 1. IOM ([place] of Medicine). 2010. Dietary reference intakes for calcium and D. [place]: The National Academies Press. 2. Lorene MF, Heather GARCIA, Jaqui MASON, et al. Evaluation, treatment, and prevention of vitamin D deficiency: an Endocrine Society clinical practice guideline. JCEM. 2011 Jan; 96(7):1911-30. Blood 03/23/2025 12:3 1 PM EDT 03/23/2025 Narrative [facility] (AMBULATORY) - 03/24/2025 8:12 AM EDT Performed at: - [facility] [id number] Mva Still Operator: Curry Elise PhD, Phone: [phone] Patient Fasting: Y Madi RUSS LAB BLOOD ORDERABLES Final Res ult [facility] (AMBULATORY) [address] [place] [address], [facility] [address] [place] [address], * CBC w AUTO Differential (03/23/2025 12:31 [...] 12:3 1 PM EDT 03/23/2025 Narrative [facility] (AMBULATORY) - 03/24/2025 8:12 AM EDT Performed at: - [address] [id number] Mva Still Operator: Curry Elise PhD, Phone: [phone] Patient Fasting: Y Madi RUSS LAB BLOOD ORDERABLES Final Res ult Performing Organization Address [facility] Co de Phone Number [facility] (AMBULATORY) [address] [place] [address], [place] [phone] [facility] [address] [place] [address], [place] [phone] * (ABNORMAL) TSH (03/23/2025 12:31 PM EDT) Pathologist [facility] TSH 4.670(H) 0.450 - 4.500 uIU/mL [facility] Blood 03/23/2025 12:3 1 PM EDT 03/23/2025 Narrative [facility] (AMBULATORY) - 03/24/2025 8:12 AM EDT Performed at: - [address] [id number] Mva Still Operator: Curry Elise PhD, Phone: [phone] Patient Fasting: Y Madi RUSS LAB BLOOD ORDERABLES Final Res ult Performing Organization Address [facility] Co de Phone Number [facility] (AMBULATORY) [address] [place] [address], [place] [phone] [facility] [address] [place] [address], [place] [phone] * (ABNORMAL) Lipid Panel (03/23/2025 12:31 PM EDT) Total Cholesterol 174 100 - 199 mg/dL [facility] Triglycerides 98 0 - 149 mg/dL [facility] HDL Cholesterol 44 >39 mg/dL [facility] VLDL Cholesterol Altaf 18 5 - 40 mg/dL [facility] LDL Chol Calc ([facility]) 112(H) 0 - 99 mg/dL [facility] Blood 03/23/2025 12:3 1 PM EDT 03/23/2025 Narrative [facility] (AMBULATORY) - 03/24/2025 8:12 AM EDT Performed at: 01 - [facility] [address] [place], [place] [id number] Mva Still Operator: Curry Elise PhD, Phone: [phone] Patient Fasting: Y Madi RUSS LAB BLOOD ORDERABLES Final Res ult [facility] (AMBULATORY) [address] [place] [address], [facility] [address] [place] [address], * (ABNORMAL) Comprehensive metabolic panel (03/23/2025 12:31 [...] 8:12 AM EDT Performed at: 01 - [address] [id number] Mva Still Operator: Curry Elise PhD, Phone: [phone] Patient Fasting: Y Madi RUSS LAB BLOOD ORDERABLES Final Res ult [facility] (AMBULATORY) [address] [place] [address], [facility] [address] [place] [address], * (ABNORMAL) POC Glycosylated Hemoglobin (Hb A1C) (03/23/2025 12:30 PM EDT) Hemoglobin A1C 6.2(A) 4.5 - 5.7 % [facility] Lot Number [id number] [facility] Expiration Date 10/15/26 [facility] Blood 03/23/2025 12:3 0 PM EDT us Madi RUSS POINT OF CARE TEST ORDERABLES Final Result [facility]
[address] [place] [address], [place] [phone] * POC Albumin/Creatinine Ratio Urine (03/23/2025 12:29 [...] Color Yellow Yellow, Straw, Dark Yellow, Meron [facility] Clarity, UA Clear Clear [facility] Specific Medon 1.025 1.005 - 1.030 [facility] pH, Urine 6.0 5.0 - 8.0 [facility] Leukocytes Negative Negative [facility] Nitrite, UA Negative Negative [facility] Protein, POC Negative Negative mg/dL [facility] Glucose, UA Negative Negative mg/dL [facility] Ketones, UA Negative Negative [facility] Urobilinogen, UA Normal Normal, 0.2 E.U./dL [facility] Bilirubin Negative Negative [facility] Blood, UA 1+(A) Negative [facility] Lot Number [id number] [facility] Expiration Date 09/07/25 [facility] Urine 03/23/2025 12:2 7 PM EDT Madi RUSS POINT OF CARE TEST ORDERABLES Final Result [facility]
[address] [place] [address], * Measles / Mumps / Rubella Immunity (02/19/2025 8:22 AM EDT) Rubella Antibodies, IgG 12.30 Immune >0.99 index [facility] Comment: Non-immune <0.90 Equivocal 0.90 - 0.99 Immune >0.99 Rubeola IgG >300.0 Immune >16.4 AU/mL [facility] Comment: Negative <13.5 Equivocal 13.5 - 16.4 Positive >16.4 Presence of antibodies to Rubeola is presumptive evidence of immunity except when acute infection is suspected. Mumps IgG 66.7 Immune >10.9 AU/mL [facility] Comment: Negative <9.0 Equivocal 9.0 - 10.9 Positive >10.9 A positive result generally indicates past exposure to Mumps virus or previous vaccination. Blood 02/19/2025 8:22 AM EDT 02/19/2025 Narrative [facility] ([facility]UL[facility]ORY) - 02/26/2025 12:10 PM EDT Performed at: [address] [place] [id number] Mva Still Operator: Curry Elise PhD, Phone: [phone] Patient Fasting: Y Madi RUSS LAB BLOOD ORDERABLES Final Res ult [facility] (AMBULATORY) [address] [place] [address], [place] [phone] [facility] [address] [place] [address], [place] [phone] * (ABNORMAL) Testosterone (Free & Total), LC / MS (02/19/2025 8:22 AM EDT) Pathologist [facility] Testosterone, Total 457.0 264.0 - 916.0 ng/dL [facility] Comment: This [facility] LC/MS-MS method is currently certified by the CDC Hormone Standardization Program (HoSt). Adult male reference interval is based on a population of healthy nonobese males (BMI <30) between 19 and 39 years old. Magui, et.al. JCEM 2017,102;7640-1023. PMID: 89387331. Testosterone, Free 4.9(L) 6.6 - 18.1 pg/mL [facility] 02/19/2025 8:22 AM EDT 02/19/2025 [facility] - 02/26/2025 12:10 PM EDT Test(s) [id number], Total, LC/MS was developed and its performance characteristics determined by [facility]. It has not been cleared or approved by the Food and Drug Administration. Performed at: - [address] [id number] Mva Still Operator: Ebony Howell MD, Phone: [phone] Patient Fasting: Y Madi RUSS LAB BLOOD ORDERABLES Final Res ult Performing Organization Address [facility] de Phone Number [facility] (AMBULATORY) [address] [place] [address], [facility] [address] [place] [address], * Hepatitis A Antibody, IgM (02/19/2025 8:22 AM EDT) Pathologist [facility] Hep A IgM Negative Negative [facility] Comment: A negative anti-HAV IgM result suggests no recent or current HAV infection. Blood 02/19/2025 8:22 AM EDT 02/19/2025 [facility] (AMBULATORY) - 02/26/2025 12:10 PM EDT Performed at: [address] [id number] Mva Still Operator: Curry Elise PhD, Phone: [phone] Patient Fasting: Y Madi RUSS LAB BLOOD ORDERABLES Final Res ult Performing Organization Address [facility] Co de Phone Number [facility] ([facility]UL[facility]) [address] [place] [address], [facility] [address] [place] [address], [place] [phone] * Estrogens, Total (02/19/2025 8:22 AM EDT) Estrogen 182 56 - 213 pg/mL [facility] Comment:Prepubertal <40 02/19/2025 8:22 AM EDT 02/19/2025 Narrative [facility] (AMBULATORY) - 02/26/2025 12:10 PM EDT Performed at: - [address] [id number] Mva Still Operator: Ebony Howell MD, Phone: [phone] Patient Fasting: Y Madi RUSS LAB BLOOD ORDERABLES Final Res ult Performing Organization Address [facility] Co de Phone Number [facility] (AMBULATORY) [address] [place] [address], [place] [phone] [facility] [address] [place] [address], [place] [phone] * ABO / Rh (02/19/2025 8:22 AM EDT) ABO Type A [facility] Rh Factor Negative [facility] Comment: Please note: Prior records for this patient's ABO / Rh type are not available for additional verification. Blood 02/19/2025 8:22 AM EDT 02/19/2025 Narrative [facility] (AMBUL[facility]ORY) - 02/26/2025 12:10 PM EDT [facility]formed [facility]: [facility] [address] [place], [place] [id number] Mva Still Operator: Curry Elise PhD, Phone: [phone] Patient Fasting: Y Madi RUSS BLOOD BANK TEST ORDERABLES Fin al Result Performing Organization Address [facility] Co de Phone Number [facility] (AMBULATORY) [address] [place] [address], [facility] [address] [place] [address], [place] [phone] * Estradiol (02/19/2025 8:22 AM EDT) [facility] Estradiol 23.2 7.6 - 42.6 pg/mL [facility] Comment:Mariam ECLIA methodol ogy 02/19/2025 8:22 AM EDT 02/19/2025 Narrative [facility] (AMBUL[facility]) - 02/26/2025 12:10 PM EDT Performed at: [address] [place] [id number] Mva Still Operator: Curry Elise PhD, Phone: [phone] Patient Fasting: Y us Madi RUSS LAB BLOOD ORDERABLES Final Res ult [facility] (AMBULATORY) [address] [place] [address], [facility] [address] [place] [address], [place] [phone] * Hepatitis B Surface Antibody (02/19/2025 8:22 AM EDT) [facility] Hep B S Ab Non Reactive [facility] Comment: Non Reactive: Not immune to HBV infection. Equivocal: Unable to determine if anti-HBs is present at levels consistent with immunity. Reactive: Anti-HBs concentration detected at greater than 10 mIU/mL. Individual is considered to be immune to infection with HBV. Blood 02/19/2025 8:22 AM EDT 02/19/2025 Narrative [facility] (AMBULATORY) - 02/26/2025 12:10 PM EDT Performed at: [address] [place] [id number] Mva Still Operator: Curry Elise PhD, Phone: [phone] Patient Fasting: Y Madi RUSS LAB BLOOD ORDERABLES Final Res ult Performing Organization Address [facility]/ZIP Co de Phone Number [facility] [address] [place] [address], [place] [phone] [facility] [address] [place] [address], [place] [phone] * Varicella zoster antibody, IgG (02/19/2025 8:22 AM EDT) [facility] Varicella IgG Reactive Non Reactive [facility] Comment: Please note reference interval change A Reactive result is considered evidence of immunity to VZV. Reactive indicates that VZV IgG was detected consistent with previous infection and/or vaccination. A Non Reactive result indicates that VZV IgG was not detected suggesting that immunity has not been acquired. Blood 02/19/2025 8:22 AM EDT 02/19/2025 Narrative [facility] (AMBUL[facility]) - 02/26/2025 12:10 PM EDT Performed at: - [facility] [address] [place] [id number] Mva Still Operator: Curry Elise PhD, Phone: [phone] Patient Fasting: Y Madi RUSS LAB BLOOD ORDERABLES Final Res ult Performing Organization Address [facility] Co de Phone Number [facility] (AMBULATORY) [address] [place] [address], [place] [phone] [facility] [address] [place] [address], [place] [phone] * Colonoscopy, Scan (01/20/2025) us Madi RUSS CHART REVIEW TABS Final Res ult from Last 3 Months or Most Recently Relevant to Health Maintenance [place] [address] MEDICARE A & B Advance Directives Documents on File Type Date Recorded Patient Elementary School Registrar Expl anation LIVING WILL - SCAN 02/26/2025 4:20 PM FREDERICK NG WILL DIRECTIVE, [facility], 09/25/2024 LIVING WILL - SCAN 02/26/2025 3:57 PM FREDERICK NG WILL DIRECTIVE, [facility],09/25/2024 Care Teams Guest Services Lead Relationship Specialty Start Date End Date Madi Gu PA [address] [place] [address] PCP - General Physician Can Stacker 05/23/21
--- OUTSIDE RECORDS SUMMARY | 2025-04-28 21:03 | XMS_ITS | Encounter Summary ---
Author Organization [facility] Address [address] [place] [address] Care Team Providers Care Security And Compliance Analyst Name Role Phone Madi Gu Primary Care Provider [phone] Encounter Details Date Type Department Care Team (Latest Contact Info) Description 03/23/2025 Travel Social History Tobacco Use Types Packs/Day Years [...] Description 03/28/2026 9:00 AM EDT Office Visit [facility] [address] [place] [address] Madi Gu PA [address] [place] [address] documented as of this encounter Visit Diagnoses Not on filedocumented in this encounter Care Teams Security And Compliance Analyst Relationship Specialty Start Date End Date Madi Gu PA [address] [place] [address] PCP - General Physician Project Analyst 05/23/21 documented as of this encounter
--- OUTSIDE RECORDS SUMMARY | 2025-04-28 21:03 | XMS_ITS | Encounter Summary ---
Author Organization [facility] Address [address] [place] [address] Care Team Providers Care Alteration Manager Name Role Phone Madi Gu Primary Care Provider Encounter Details Date Type Department Care Team (Late Contact Info) Description 03/29/2025 Results Follow-Up [facility] [address] [facility] [place] [address] Madi Gu PA [address] [place] [address] Social History Tobacco Use Types Packs/Day Years [...] on file documented as of this encounter Plan of Treatment Upcoming Encounters Date Type Department Care Team (Late st Contact Info) Description 03/28/2026 9:00 AM EDT Office Visit [facility] [address] [place] [address] Madi Gu PA [address] [place] [address] Scheduled Orders Name Type Priority Associated Diagnoses Orde r Schedule TSH Lab Routine Acquired hypothyroidism Expected: 04/04/2025 (Approximate), Expires: 06/29/2026 T4, free Lab Routine Acquired hypothyroidism Expected: 04/04/2025 (Approximate), Expires: 06/29/2026 T3, free Lab Routine Acquired hypothyroidism Expected: 04/04/2025 (Approximate), Expires: 06/29/2026 documented as of this encounter Visit Diagnoses Diagnosis Acquired hypothyroidism- Primary Unspecified hypothyroidism documented in this encounter Care Teams Alteration Manager Relationship Specialty Start Date End Date Madi Gu PA [address] [place] [address] PCP - General Physician Entry Level Account Manager 05/23/21 documented as of this encounter
--- OUTSIDE RECORDS SUMMARY | 2025-04-28 21:03 | XMS_ITS | Encounter Summary ---
Author Organization [facility] Address [address] [place] [address] Care Team Providers Care Hourly Sign Language Interpreter Name Role Phone Madi Gu Primary Care Provider [phone] Reason for Visit * Reason Comments Med Refill Encounter Details Date Type Department Care Team (Late Contact Info) Description 03/23/2025 Refill [facility] [address] [place] [address] Madi Gu PA [address] [facility], [place] [id number] Mixed hyperlipidemia Social History Tobacco Use Types Packs/Day Years [...] Encounters Date Type Department Care Team (Late Contact Info) Description 03/28/2026 9:00 AM EDT Office Visit [facility] [address] [place] [id number] Madi Gu PA [address] [place] [address] documented as of this encounter Visit Diagnoses Diagnosis Mixed hyperlipidemia documented in this encounter Care Teams Hourly Sign Language Interpreter Relationship Specialty Start Date End Date Madi Gu PA [address] [place] [address] PCP - General Physician Band Nailer 05/23/21 documented as of this encounter
--- OUTSIDE RECORDS SUMMARY | 2025-04-28 21:03 | XMS_ITS | Clinical Summary ---
Author Organization [facility] Address [address] [place] [address] Care Team Providers Care Support Analyst Name Role Phone Pcp, No Primary Care Provider Unavailabl e Allergies Active Allergy Reactions Criticality Noted Date Comments Penicillins Rash Low 10/24/2007 Patient states the rash was localized, for years prior to that he took penicillin with no problem. Is this a true allergy? Not sure if this was the cause Medications tirzepatide (Mounjaro) 7.5 MG/0.5ML solution auto-injector solution pen-injector Inject 0.5 mL under the skin every 7 days. 4 Active olmesartan (BENIcar) 20 MG tablet Take 1 tablet by mouth daily. Active ezetimibe (Zetia) 10 MG tablet Take 1 tablet by mouth 1 time each day. 5 Active cholecalciferol (Vitamin D-3) 250 MCG (75774 UT) capsule Take 1 capsule by mouth daily. Active ASPIRIN 81 MG chewable tablet Chew 1 tablet daily. Active cetirizine (ZyrTEC) 10 MG chewable tablet Chew daily. Active meloxicam (Mobic) 15 MG tabletIndications:P rimary osteoarthritis of one knee, right Take 1 tablet by mouth daily as needed for moderate pain. 30 tablet 2 5 Active Active Problems Problem Noted Date Diagnosed Date Hypertension 01/04/2025 Mixed hyperlipidemia 01/04/2025 Seasonal allergies 01/04/2025 Type 2 diabetes mellitus wit hout complication, without long-term current use of insulin 05/28/2018 Social History Tobacco Use Types Packs/Day Years Used Date Smoking Tobacco: Never Smokeless Tobacco: Never Tobacco Cessation:Counseling Given: Not Answered Sex and Gender Information Value Date Recorded Sex Assigned at Not on file Legal Sex Male 8:03 PM EDT Gender Identity Not on file Sexual Orientation Not on file Last Filed Vital Signs Vital Sign Reading Time Taken Comments Blood Pressure 150/85 01/04/2025 9:12 AM EDT Pulse 58 01/04/2025 9:12 AM EDT Temperature - - Respiratory Rate - - Oxygen Saturation 99% 01/04/2025 9:12 AM EDT Inhaled Oxygen Concentration - - Weight 113 kg (249 lb) 01/04/2025 9:12 AM EDT Height 185.4 cm (6' 1 ) 01/04/2025 9:12 AM EDT Body Mass Index 32.85 01/04/2025 9:12 AM EDT Plan of Treatment Health Maintenance Due Date Last Done Comments [facility]-Depression Screening 1954 [facility]-Hepatitis C Screening 1954 [facility]-/Child/Adol SDOH Screenings 1954 Diabetes: Dental Exam 1964 [facility]- SDOH Screenings 1972 [facility]-Adult SDOH Screenings 1972 CT Colonography 11/18/1999 Colonoscopy 11/18/1999 [facility]-DNA 11/18/1999 FIT 11/18/1999 FOBT 11/18/1999 Sigmoidoscopy 11/18/1999 [facility]-Colorectal Cancer Screening 11/18/1999 [facility]-Medicare Annual Wellness (AWV) 01/08/2025 01/09/2024, 03/28/2022 [id number] Vaccine ( season) 2025 04/24/2024, 04/22/2023, 05/09/2022, Additional history exists [facility]-Influenza Vaccine (#1) 03/15/202504/24, 04/22/2023, 05/09/2022, Additional history exists [facility]-Diabetes: Hemoglobin A1C 06/01/2025, 01/09/2024, 09/17/2023, Additional history exists [facility]-RSV Vaccine: 60+ Years or (1 - 1-dose 75+ series) 2029 [facility]-DTaP,Tdap,and Td Vaccines (2 - Td or Tdap) 12/11/2034 12/11/2024, 07/15/2008 [facility]-Pneumococcal Vaccine: 50+ Years Completed 05/16/2023, 03/28/2022, 12/29/2018 [facility]-Zoster Vaccines Completed 09/17/2023, [facility]-Obesity Intervention Completed 01/04/2025, 11/12 HPV Vaccines Aged Out No longer eligi ble based on patient's age to complete this topic [facility]-HIB Vaccines Aged Out No longer e ligible based on patient's age to complete this topic [facility]-Hepatitis A Vaccines Aged Out No longer eligible based on patient's age to complete this topic [facility]-IPV Vaccines Aged Out No longer e ligible based on patient's age to complete this topic [facility]-Rotavirus Vaccines Aged Out No lo nger eligible based on patient's age to complete this topic Insurance [facility]ICARE [facility] [id number] Care Teams Support Analyst Relationship Specialty Start Date End Date Pcp, Pr[address] [address] [place] [address] PCP - General Family Medicine 10/30/24
[2025-04-28 21:08] LABS: Hematocrit 49.3 % (42.0-52.0); Hemoglobin 16.7 g/dL (14.1-18.0); Immature Granulocytes % 0.9 %; Mean Corpuscular HGB Conc 33.9 g/dL (31.8-35.4); Mean Corpuscular Hemoglobin 29.0 pg (27.0-31.2); Mean Corpuscular Volume 85.7 fl (80-94); Nucleated Red Blood Cells % 0 %; Platelet Count 203 K/mm3 (142-424); Red Blood Count 5.75 M/mm3 (4.60-6.20); Red Cell Distribution Width-SD 38.6 fL; White Blood Count 6.9 K/mm3 (4.8-10.8)
[2025-04-28 21:19] VITALS: BP 147/74; PULSE 89; O2SAT 96
[2025-04-28 21:26] LABS: Alanine Aminotransferase 25 U/L (12-78); Albumin Level 4.9 g/dl (3.5-5.0); Albumin/Globulin Ratio 1.4 (1.1-1.8); Alkaline Phosphatase 120 U/L (38-126); Anion Gap 18.2 mEq/L (5-15); Aspartate Amino Transferase 30 U/L (17-59); Bilirubin,Total 1.6 mg/dl (0.2-1.3); Blood Urea Nitrogen 21 mg/dl (9-20); Calcium 9.7 mg/dl (8.4-10.2); Carbon Dioxide 24 mmol/L (22.0-30.0); Chloride 100 mmol/L (98-107); Creatinine Clearance Estimated 98 mL/min (50-200); Creatinine,Serum 1.10 mg/dl (0.66-1.25); Estimated Glomerular Filt Rate 66 ml/min (>60); GFR (African American) 80 ML/MIN (>60); Globulin 3.4 g/dL (1.3-3.2); Glucose 165 mg/dl (74-100); Magnesium 1.6 mg/dl (1.6-2.3); Potassium 4.2 mmoL/L (3.5-5.1); Sodium 138 mmol/L (136-145); Total Protein,Serum 8.3 g/dl (6.3-8.2)
[2025-04-28] MEDS: SODIUM CHLORIDE 0.9% 10ML SYR (RAD ONLY) 10 ML IV (21:53)
[2025-04-28] MEDS: IOPAMIDOL-370 (76%);100ML BOTTLE 75 ML IV (21:53)
[2025-04-28 22:05] LABS: RBC Morphology Normal; Total Cells Counted 100
[2025-04-28 22:23] VITALS: BP 135/68; PULSE 81; O2SAT 97
[2025-04-28 23:12] LABS: Microscopic, Urine URINE MICROSCOPIC (MICROSCOPIC)
[2025-04-28 23:14] VITALS: BP 129/72; PULSE 78; RESP 16; O2SAT 98
[2025-04-28 23:16] LABS: Bilirubin,Urine Negative (Negative); Color,Urine YELLOW (Yellow); Glucose,Urine (UA) Negative (Negative); Ketones,Urine Negative (Negative); Leukocyte Esterase,Urine Negative (Negative); PH,Urine 5.5 (5.0-8.5); Protein,Urine Negative (Negative); Specific Gravity, Urine <= 1.005 (1.005-1.030); Urobilinogen,Urine 0.2 EU/dl (0.2)
[2025-04-28 23:39] LABS: Bacteria,Urine Trace /lpf; RBC,Urine Occasional #/hpf (0-3)
[2025-04-28 23:40] LABS: Mucus,Urine 1+ /lpf
[2025-04-28 23:44] VITALS: BP 136/71; PULSE 80; RESP 16; TEMP 37; O2SAT 96
== END 2025-04-29 00:06 | disposition home or self-care (01) ==
PROVIDERS: Nurse Practitioner Family; Emergency Provider Student in an Organized Health Care Education/Training Program
DX: R10.32 Left lower quadrant pain (principal); R50.9 Fever, unspecified; R11.2 Nausea with vomiting, unspecified
CPT/HCPCS: 71045; 74177; 80053; 81001; 83605; 83735; 85007; 85025; 87040; 87636; 96361; 96374; 99285; J2405; J7030; Q9967